=== PATIENT | female | born 1940 | race Caucasian/White ===

== ENCOUNTER 2016-09-24 14:18 | Emergency (ER) | payer MEDICARE ==
[2016-09-24] MEDS ORDERED: PANTOPRAZOLE 40 MG/10 ML VIAL IVP STA (14:42)
[2016-09-24] MEDS ORDERED: SODIUM CHLORIDE 0.9% 1,000 ML IV STA (14:42)
[2016-09-24] MEDS ORDERED: SODIUM CHLORIDE 0.9% 500 ML IV STA (14:42)
[2016-09-24] MEDS ORDERED: METOCLOPRAMIDE 5 MG/ML 2 ML VIAL IVP STA (14:45)
[2016-09-24] MEDS ORDERED: ACETAMINOPHEN IV (For NPO) 1,000 MG in SALINE 1 100ML.BAG IVPB STA (14:45)
--- NOTE | 2016-09-24 14:48 | ED ---
General Adult HPI - General Chief complaint: GI Bleed Stated complaint: Dark stools Time Seen by Provider: 09/24/16 14:33 Source: patient, family, RN notes reviewed Mode of arrival: wheelchair Limitations: no limitations - History of Present Illness Initial comments: Patient is a pleasant 76-year-old female presenting to the emergency department with complaints of headache and dark stools. Headache has been present for about a week. Gradual onset. Headache is right posterior. Headache has been fairly persistent and severe since that time. Patient has been taking Aleve with some improvement of symptoms. Patient has noticed dark stools over the past couple of days. Patient has been somewhat weak over the past couple of days and had some falls without significant injury. No confusion. No isolated area of weakness. No fevers. No abdominal pain. No chest pain or dyspnea. No history of GI bleeding in the past. - Related Data Home Medications Medication Instructions Recorded Confirmed Metoprolol Succinate [Toprol XL] 50 mg PO DAILY 07/23/15 09/24/16 Aspirin EC [Ecotrin Low Dose] 81 mg PO DAILY 09/24/16 09/24/16 Atorvastatin [Lipitor] 20 mg PO HS 09/24/16 09/24/16 Cholecalciferol [Vitamin D3] 1,000 unit PO DAILY 09/24/16 09/24/16 Naproxen Sodium [Aleve] 220 mg PO Q12H PRN 09/24/16 09/24/16 Ramipril [Altace] 5 mg PO BID 09/24/16 09/24/16 metFORMIN HCL [metFORMIN HCL ER] 750 mg PO BID 09/24/16 09/24/16 Previous Rx's Medication Instructions Recorded Metoclopramide HCl [Reglan] 10 mg PO Q6HR PRN #15 tablet 09/24/16 Allergies Allergy/AdvReac Type Severity Reaction Status Date / Time Sulfa (Sulfonamide Allergy Unknown Verified 09/24/16 14:34 Antibiotics) Review of Systems ROS Statement: Those systems with pertinent positive or pertinent negative responses have been documented in the HPI. ROS Other: All systems not noted in ROS Statement are negative. Constitutional: Denies: fever Eyes: Denies: eye pain ENT: Denies: ear pain Respiratory: Denies: cough, dyspnea Cardiovascular: Denies: chest pain Endocrine: Reports: fatigue Gastrointestinal: Reports: melena. Denies: abdominal pain Genitourinary: Denies: dysuria Skin: Denies: rash Neurological: Reports: headache. 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 Absent: nystagmus ENT exam: Present: normal oropharynx Neck exam: Present: normal inspection Respiratory exam: Present: normal lung sounds bilaterally Cardiovascular Exam: Present: regular rate, normal rhythm GI/Abdominal exam: Present: soft. Absent: tenderness Rectal exam: Present: normal inspection. Absent: black stool Extremities exam: Present: normal inspection Neurological exam: Present: alert, oriented X3, CN II-XII intact. Absent: motor sensory deficit Expanded Speech: Present: fluid speech Cranial nerves: EOM's Intact: Normal, Facial Sensation: Normal Sensory exam: Upper Extremity Light Touch: Normal, Lower Extremity Light Touch: Normal Motor strength exam: RUE: 5, LUE: 5, RLE: 5, LLE: 5 Eye Response: (4) open spontaneously Motor Response: (6) obeys commands Verbal Response: (5) oriented Psychiatric exam: Present: normal affect, normal mood Skin exam: Absent: rash Course Vital Signs 09/24/16 09/24/16 14:23 15:34 Temperature 97.1 F L Pulse Rate 99 80 Respiratory 18 18 Rate Blood Pressure 217/101 139/60 O2 Sat by Pulse 98 97 Oximetry Medical Decision Making - Medical Decision Making Patient reexamined and resting comfortably at bedside. Patient is symptom- free. Patient states she is comfortable with discharge home. Patient will be ambulated prior to discharge. Family is present and also comfortable with discharge. Patient and family are updated on results and need for close follow- up. - Lab Data Result diagrams: 09/24/16 15:30 09/24/16 15:30 Lab Results 09/24/16 09/24/16 09/24/16 Range/Units 14:50 14:56 15:30 WBC (3.8-10.6) k/uL RBC (3.80-5.40) m/uL Hgb (11.4-16.0) gm/dL Hct (34.0-46.0) % MCV (80.0-100.0) fL MCH (25.0-35.0) pg MCHC (31.0-37.0) g/dL RDW (11.5-15.5) % Plt Count (150-450) k/uL Neutrophils % % Lymphocytes % % Monocytes % % Eosinophils % % Basophils % % Neutrophils # (1.3-7.7) k/uL Lymphocytes # (1.0-4.8) k/uL Monocytes # (0-1.0) k/uL Eosinophils # (0-0.7) k/uL Basophils # (0-0.2) k/uL PT (9.0-12.0) sec INR (<1.1) APTT (22.0-30.0) sec Sodium (137-145) mmol/L Potassium (3.5-5.1) mmol/L Chloride (98-107) mmol/L Carbon Dioxide (22-30) mmol/L Anion Gap mmol/L BUN (7-17) mg/dL Creatinine (0.52-1.04) mg/dL Est GFR (MDRD) Af Amer (>60 ml/min/1.73 sqM) Est GFR (MDRD) Non-Af (>60 ml/min/1.73 sqM) Glucose (74-99) mg/dL Calcium (8.4-10.2) mg/dL Total Bilirubin (0.2-1.3) mg/dL AST (14-36) U/L ALT (9-52) U/L Alkaline Phosphatase (38-126) U/L Total Creatine Kinase 56 (30-135) U/L CK-MB (CK-2) 0.7 (0.0-2.4) ng/mL CK-MB (CK-2) Rel Index 1.3 Troponin I <0.012 (0.000-0.034) ng/mL Total Protein (6.3-8.2) g/dL Albumin (3.5-5.0) g/dL Urine Color Light Yellow Urine Appearance Cloudy H (Clear) Urine pH 8.0 (5.0-8.0) Ur Specific [place] 1.003 (1.001-1.035) Urine Protein 1+ H (Negative) Urine Glucose (UA) Negative (Negative) Urine Ketones Negative (Negative) Urine Blood Negative (Negative) Urine Nitrate Negative (Negative) Urine Bilirubin Negative (Negative) Urine Urobilinogen <2.0 (<2.0) mg/dL Ur Leukocyte Esterase Moderate H (Negative) Urine WBC 7 H (0-5) /hpf Ur Squamous Epith Cells 5 H (0-4) /hpf Urine Bacteria Moderate H (None) /hpf Urine Mucus Rare H (None) /hpf Stool Occult Blood Negative (Negative) Blood Type Blood Type Recheck Antibody Screen Spec Expiration Date 09/24/16 09/24/16 09/24/16 Range/Units 15:30 15:30 15:30 WBC 4.0 (3.8-10.6) k/uL RBC 3.61 L (3.80-5.40) m/uL Hgb 10.7 L (11.4-16.0) gm/dL Hct 31.7 L (34.0-46.0) % MCV 87.8 (80.0-100.0) fL MCH 29.8 (25.0-35.0) pg MCHC 33.9 (31.0-37.0) g/dL RDW 13.8 (11.5-15.5) % Plt Count 140 L (150-450) k/uL Neutrophils % 77 % Lymphocytes % 14 % Monocytes % 5 % Eosinophils % 2 % Basophils % 1 % Neutrophils # 3.1 (1.3-7.7) k/uL Lymphocytes # 0.6 L (1.0-4.8) k/uL Monocytes # 0.2 (0-1.0) k/uL Eosinophils # 0.1 (0-0.7) k/uL Basophils # 0.0 (0-0.2) k/uL PT 10.6 (9.0-12.0) sec INR 1.0 (<1.1) APTT 21.3 L (22.0-30.0) sec Sodium 144 (137-145) mmol/L Potassium 4.5 (3.5-5.1) mmol/L Chloride 104 (98-107) mmol/L Carbon Dioxide 26 (22-30) mmol/L Anion Gap 14 mmol/L BUN 19 H (7-17) mg/dL Creatinine 0.98 (0.52-1.04) mg/dL Est GFR (MDRD) Af Amer >60 (>60 ml/min/1.73 sqM) Est GFR (MDRD) Non-Af 55 (>60 ml/min/1.73 sqM) Glucose 137 H (74-99) mg/dL Calcium 9.3 (8.4-10.2) mg/dL Total Bilirubin 0.5 (0.2-1.3) mg/dL AST 19 (14-36) U/L ALT 27 (9-52) U/L Alkaline Phosphatase 90 (38-126) U/L Total Creatine Kinase (30-135) U/L CK-MB (CK-2) (0.0-2.4) ng/mL CK-MB (CK-2) Rel Index Troponin I (0.000-0.034) ng/mL Total Protein 6.8 (6.3-8.2) g/dL Albumin 4.1 (3.5-5.0) g/dL Urine Color Urine Appearance (Clear) Urine pH (5.0-8.0) Ur Specific [place] (1.001-1.035) Urine Protein (Negative) Urine Glucose (UA) (Negative) Urine Ketones (Negative) Urine Blood (Negative) Urine Nitrate (Negative) Urine Bilirubin (Negative) Urine Urobilinogen (<2.0) mg/dL Ur Leukocyte Esterase (Negative) Urine WBC (0-5) /hpf Ur Squamous Epith Cells (0-4) /hpf Urine Bacteria (None) /hpf Urine Mucus (None) /hpf Stool Occult Blood (Negative) Blood Type Blood Type Recheck Antibody Screen Spec Expiration Date 09/24/16 Range/Units 15:30 WBC (3.8-10.6) k/uL RBC (3.80-5.40) m/uL Hgb (11.4-16.0) gm/dL Hct (34.0-46.0) % MCV (80.0-100.0) fL MCH (25.0-35.0) pg MCHC (31.0-37.0) g/dL RDW (11.5-15.5) % Plt Count (150-450) k/uL Neutrophils % % Lymphocytes % % Monocytes % % Eosinophils % % Basophils % % Neutrophils # (1.3-7.7) k/uL Lymphocytes # (1.0-4.8) k/uL Monocytes # (0-1.0) k/uL Eosinophils # (0-0.7) k/uL Basophils # (0-0.2) k/uL PT (9.0-12.0) sec INR (<1.1) APTT (22.0-30.0) sec Sodium (137-145) mmol/L Potassium (3.5-5.1) mmol/L Chloride (98-107) mmol/L Carbon Dioxide (22-30) mmol/L Anion Gap mmol/L BUN (7-17) mg/dL Creatinine (0.52-1.04) mg/dL Est GFR (MDRD) Af Amer (>60 ml/min/1.73 sqM) Est GFR (MDRD) Non-Af (>60 ml/min/1.73 sqM) Glucose (74-99) mg/dL Calcium (8.4-10.2) mg/dL Total Bilirubin (0.2-1.3) mg/dL AST (14-36) U/L ALT (9-52) U/L Alkaline Phosphatase (38-126) U/L Total Creatine Kinase (30-135) U/L CK-MB (CK-2) (0.0-2.4) ng/mL CK-MB (CK-2) Rel Index Troponin I (0.000-0.034) ng/mL Total Protein (6.3-8.2) g/dL Albumin (3.5-5.0) g/dL Urine Color Urine Appearance (Clear) Urine pH (5.0-8.0) Ur Specific [place] (1.001-1.035) Urine Protein (Negative) Urine Glucose (UA) (Negative) Urine Ketones (Negative) Urine Blood (Negative) Urine Nitrate (Negative) Urine Bilirubin (Negative) Urine Urobilinogen (<2.0) mg/dL Ur Leukocyte Esterase (Negative) Urine WBC (0-5) /hpf Ur Squamous Epith Cells (0-4) /hpf Urine Bacteria (None) /hpf Urine Mucus (None) /hpf Stool Occult Blood (Negative) Blood Type O Positive Blood Type Recheck No Antibody Screen NEGATIVE Spec Expiration Date 09/27/20162329 - Radiology Data Radiology results: image reviewed (Computed tomography scan of the brain shows no acute abnormality.) Disposition Clinical Impression: Headache, Dark stools Disposition: HOME SELF-CARE Condition: Stable Instructions: Gastrointestinal Bleeding (ED), General Headache (ED) Additional Instructions: Please follow-up with primary care physician this week. Please have your doctor review results and report from today. Please also have your doctor follow-up with urine culture results. Return for severe headache, weakness or confusion, shortness of breath, abdominal pain, bleeding, worsening symptoms or any other concerns. Please use Tylenol rather than ibuprofen/Aleve as needed for headache. Prescriptions: Metoclopramide HCl [Reglan] 10 mg PO Q6HR PRN #15 tablet PRN Reason: Headache Referrals: Omar Marie MD [Primary Care Provider] - 1-2 days
[2016-09-24 15:07] LABS: Appearance,Urine Cloudy (Clear); Bacteria,Urine Moderate /hpf; Bilirubin,Urine Negative (Negative); Glucose,Urine (UA) Negative (Negative); Ketones,Urine Negative (Negative); Leukocyte Esterase,Urine Moderate (Negative); Mucus,Urine Rare /hpf; Nitrite,Urine Negative (Negative); Particle Count 52858; Protein,Urine 1+ (Negative); Specific Gravity,Urine 1.003 (1.001-1.035); Squamous Epithelial Cell,Urine 5 /hpf (0-4); UA Billing (MACRO vs. MICRO) MICRO; Urobilinogen,Urine <2.0 mg/dL (<2.0); WBC,Urine 7 /hpf (0-5)
--- NOTE | 2016-09-24 15:28 | CT ---
EXAMINATION TYPE: CT brain wo con DATE OF EXAM: 09/24/2016 3:23 PM COMPARISON: NONE HISTORY: Headaches for 1-[address] DLP: 1153 mGycm Automated exposure control for dose reduction was used. FINDINGS: There is no acute intracranial hemorrhage, mass effect, or midline shift identified. The ventricles and sulci are consistent with mild degenerative change. Hyperostosis interna noted.. The globes are intact and the visualized sinuses are clear. IMPRESSION: No acute intracranial hemorrhage, mass effect, or midline shift is seen.
[2016-09-24 15:45] LABS: Basophils % (A) 1 %; CH 29.3; CHCM 33.5; Eosinophils # (A) 0.1 k/uL (0-0.7); Eosinophils % (A) 2 %; HCT 31.7 % (34.0-46.0); HDW 2.86; HGB 10.7 gm/dL (11.4-16.0); Luc # (Auto) 0.08; Luc % (Auto) 2; Lymphocytes # (A) 0.6 k/uL (1.0-4.8); Lymphocytes % (A) 14 %; MCH 29.8 pg (25.0-35.0); MCHC 33.9 g/dL (31.0-37.0); MCV 87.8 fL (80.0-100.0); Mean Platelet Volume 7.8; Monocytes # (A) 0.2 k/uL (0-1.0); Monocytes % (A) 5 %; Neutrophils # (A) 3.1 k/uL (1.3-7.7); Neutrophils % (A) 77 %; RBC 3.61 m/uL (3.80-5.40); RDW 13.8 % (11.5-15.5); WBC (Perox) 4.32
[2016-09-24 16:03] LABS: ALT 27 U/L (9-52); AST 19 U/L (14-36); Alkaline Phosphatase 90 U/L (38-126); Anion Gap 14 mmol/L; Blood Urea Nitrogen 19 mg/dL (7-17); Calcium 9.3 mg/dL (8.4-10.2); Carbon Dioxide 26 mmol/L (22-30); Chloride 104 mmol/L (98-107); Glucose 137 mg/dL (74-99); Non-African American GFR(MDRD) 55 (>60 ml/min/1.73 sqM); Potassium 4.5 mmol/L (3.5-5.1); Sodium 144 mmol/L (137-145); Total Bilirubin 0.5 mg/dL (0.2-1.3); Total Protein 6.8 g/dL (6.3-8.2)
[2016-09-24 16:05] LABS: Prothrombin Time 10.6 sec (9.0-12.0)
[2016-09-24 16:25] LABS: Partial Thromboplastin Time 21.3 sec (22.0-30.0)
[2016-09-24 16:28] LABS: Creatine Kinase 56 U/L (30-135)
[2016-09-24 16:42] LABS: Creatine Kinase MB 0.7 ng/mL (0.0-2.4); Troponin I <0.012 ng/mL (0.000-0.034)
[2016-09-24 17:31] VITALS: BP 135/67; PULSE 82; RESP 16; TEMP 98.1
== END 2016-09-24 17:32 | disposition home or self-care (01) ==
LOC: EC 14:18
DX: R51 Headache (principal); R19.5 Other fecal abnormalities; Z79.82 Long term (current) use of aspirin; E78.5 Hyperlipidemia, unspecified; Z79.84 Long term (current) use of oral hypoglycemic drugs; Z88.2 Allergy status to sulfonamides; E11.9 Type 2 diabetes mellitus without complications; I10 Essential (primary) hypertension
CPT/HCPCS: 96365; 96375 ×2; 96361 ×2; 99285; 36415; 86900; 86901; 80053; 82550; 82553; 84484; 85025; 85610; 85730; 86850; 82272; 81001; 87086; 87077; 87186; 70450; J2765; J0131; C9113

== ENCOUNTER 2016-11-17 07:19 | Day surgery (SDC) | payer MEDICARE ==
[2016-11-13 09:48] VITALS: BMI 34.9
[~2016-11-17 07:19] MED LIST: LACTATED RINGERS 1,000 ML IV SCH
[2016-11-17 07:35] VITALS: RESP 18; TEMP 98
[2016-11-17] MEDS ORDERED: LACTATED RINGERS 1,000 ML IV ONE (07:35)
[2016-11-17] MEDS ORDERED: LIDOCAINE 1% 20 ML VIAL (10MG/ML) FOR IV START INTRADERMA ONE (07:47)
[2016-11-17 07:48] LABS: Glucose,Whole Blood 128 mg/dL (75-99)
[2016-11-17] MEDS ORDERED: PROPOFOL 10 MG/ML 20 ML VIAL IV ONE (09:05)
--- NOTE | 2016-11-17 09:34 | P.PCN ---
Date of Procedure: 11/17/16 Procedure(s) Performed: Procedure: Total colonoscopy. Preoperative diagnosis: Screening for neoplasia, patient has history of polyps and his recent issues with dark stools and chronic issues with anemia. Last colonoscopy was in June 2012. Postoperative diagnosis: Diverticulosis of the colon with no evidence of acute diverticulitis, strictures, polyps or cancer. Preparation: HalfLytely prep. Sedation: Was provided by anesthesia. Brief clinical history: The patient is a 76-year-old female who is scheduled for this evaluation for the above reasons. She has had anemia for the last 2 years or so. Apparently her stools have been dark lately. An upper endoscopy in 2008 showed gastritis and esophagitis. Procedure: With the patient on her left lateral decubitus position and after informed consent and adequate sedation, the perianal area was inspected and it did not show any fissures or fistulas. There were no masses felt on digital rectal examination. The Olympus CFQ 160L video colonoscope was then inserted in the rectum in the usual fashion and advanced to the cecum. There were multiple diverticular orifices seen scattered along the length of the bowel including around the hepatic flexure with no evidence of acute diverticulitis or strictures. No polyps or tumors were seen. The mucosa appeared healthy. I retroflexed the endoscope in the rectum before the endoscope was withdrawn. The patient tolerated the procedure well. Plan: The patient was reassured. Discussed dietary measures. Consideration can be given for an upper endoscopy based on her course. She will follow-up with you as planned and I will be happy to see in the future if needed.
[2016-11-17 10:05] VITALS: BP 171/78; PULSE 88
== END 2016-11-17 10:28 | disposition home or self-care (01) ==
LOC: ORWHC2ENDO 07:19
DX: R19.5 Other fecal abnormalities (principal); Z86.010 Personal history of colon polyps; K57.30 Diverticulosis of large intestine without perforation or abscess without bleeding; D64.9 Anemia, unspecified; I10 Essential (primary) hypertension; E78.5 Hyperlipidemia, unspecified; E11.9 Type 2 diabetes mellitus without complications; Z88.2 Allergy status to sulfonamides; Z79.84 Long term (current) use of oral hypoglycemic drugs; Z79.82 Long term (current) use of aspirin; Z79.899 Other long term (current) drug therapy
CPT/HCPCS: 45378; J2704; 99153

== ENCOUNTER 2016-12-23 09:21 | Day surgery (SDC) | payer MEDICARE ==
[2016-12-19 14:22] VITALS: BMI 34.9
[~2016-12-23 09:21] MED LIST changes: -LACTATED RINGERS 1,000 ML IV SCH; +LIDOCAINE 1% 20 ML VIAL (10MG/ML) FOR IV START INTRADERMA PRN
[2016-12-23 09:47] VITALS: TEMP 98.1
[2016-12-23] MEDS: LACTATED RINGERS 1,000 ML IV SCH ×2 (09:51→10:00)
[2016-12-23 09:56] LABS: Glucose,Whole Blood 111 mg/dL (75-99)
[2016-12-23] MEDS ORDERED: PROPOFOL 10 MG/ML 20 ML VIAL IV ONE (10:04)
[2016-12-23] MEDS ORDERED: LIDOCAINE 1% INJ 10MG/ML (20 ML MDV) ONE (10:04)
--- NOTE | 2016-12-23 10:50 | P.PCN ---
Date of Procedure: 12/23/16 Procedure(s) Performed: Procedure: Esophagogastroduodenoscopy and biopsy. Preoperative diagnosis: Intermittent dysphagia and hiccuping with black stools. Postoperative diagnosis: 1. Small sliding hiatal hernia with no obvious esophagitis or complicated reflux disease. 2. Mild gastritis and duodenitis. 3. Multiple biopsies obtained from the duodenum, antrum and esophagus. Preparation and sedation: Was provided by anesthesia. Brief clinical history: The patient is a 76-year-old female who is referred for this evaluation because of issues with hiccuping and coughing and at times choking sensation. She has been having black stools. She was in the emergency room around 2 weeks ago with coffee-ground emesis. This evaluation is to assess for peptic ulcer disease, complicated reflux disease or other pathology. Procedure: With the patient on her left lateral decubitus position and after informed consent and adequate sedation, I passed the Olympus-GIF 160 video upper endoscope through the cricopharyngeus down the esophagus. GE junction was around 40-41 cm from the incisors and there was a small sliding hiatal hernia. The esophagus did not show any erosions, ulcers, strictures or Lozano' s esophagus. The endoscope was then passed into the stomach which was insufflated with air and inspected in detail including the retroflex view in the cardia. There was some mottling and erythema in the antrum but no ulcers or erosions. Pyloric channel did not show any ulcers, duodenal bulb, post bulbar area and descending duodenum showed minimal erythema with no ulcers, erosions or bleeding. I obtained multiple biopsies from the duodenum, antrum and esophagus then the endoscope was withdrawn. The patient tolerated the procedure well. Plan: The patient was reassured and I discussed with her daughters at length. Will await biopsy results. She will follow-up with you as planned and further plans can be made based on her course and biopsy results.
[2016-12-23 10:58] VITALS: RESP 18
[2016-12-23 11:25] VITALS: BP 123/70; PULSE 81
== END 2016-12-23 11:25 | disposition home or self-care (01) ==
LOC: ORWHC2ENDO 09:21
DX: K29.50 Unspecified chronic gastritis without bleeding (principal); K29.80 Duodenitis without bleeding; K44.9 Diaphragmatic hernia without obstruction or gangrene; I10 Essential (primary) hypertension; E78.5 Hyperlipidemia, unspecified; E11.9 Type 2 diabetes mellitus without complications; Z79.84 Long term (current) use of oral hypoglycemic drugs; Z86.718 Personal history of other venous thrombosis and embolism; Z79.82 Long term (current) use of aspirin; Z79.899 Other long term (current) drug therapy; Z88.2 Allergy status to sulfonamides
CPT/HCPCS: 88305; 88342; 43239; J2001; J2704

== ENCOUNTER → 2017-03-30 | Outpatient (CLI) | payer MEDICARE ==
[2017-03-26 15:51] VITALS: BMI 34.5
[2017-03-30 12:10] VITALS: BP 177/64; PULSE 86; RESP 16; TEMP 98.2
--- NOTE | 2017-03-30 12:28 | P.HPIM ---
History of Present Illness H&P Date: 03/30/17 Chief Complaint: neck pain and headaches This is a 77-year-old patient referred by Dr. Stevenson for chronic pain primarily in the shoulders, neck, and the back of the head. Patient has been taking medications from primary care physician including NSAIDs medications with some relief as she does not want to use any narcotics. Patient denies adverse drug effects from medications. Patient also denies new-onset weakness, bowel/ bladder incontinence, or any other signs or symptoms of cauda equina syndrome. There are no signs of acute intoxication, and no indications of medication diversion or overuse. Patient notes that pain worsens significantly with concentration and movement of the head and improves with sleep and medication. Patient has used several types of medications for pain, including NSAIDS, tramadol, and BENZODIAZEPINES. Patient HAS NOT had surgery. Patient HAS NOT had injections previously. Patient HAS NOT had physical therapy recently. In addition to above, 13-point review of systems is also negative for chest pain , shortness of breath, changes in vision, changes in hearing, new onset weakness , abdominal pain, diarrhea, extreme fatigue, malaise, fever, skin changes, homicidal or suicidal ideation, or bowel or bladder incontinence. Vital Signs: Reviewed in EMR Gen: WDWN, AAOx3, NAD HEENT: NCAT, EOMI, hearing grossly normal, TTP over occipital ridges, R > L Pulm: resp unlabored Abd: soft, NT, ND Neck: supple, trachea midline ROM in flexion cervical spine: reduced ROM in extension cervical spine: reduced Cervical paravertebral tenderness: + Cervical Facet tenderness: + bilateral, R > L Spurling's: neg Upper extremity: decreased trap operator strength secondary to pain Neuro: CN II-XII grossly intact, muscle strength lower extremities PRESERVED Past Medical History Past Medical History: Diabetes Mellitus, Deep Vein Thrombosis (DVT), Eye Disorder, Fibromyalgia, Hyperlipidemia, Hypertension Additional Past Medical History / Comment(s): Anemia. Headaches, CONSTANT HUMMING in [place] Ears. Blind LT Eye r/t Macular Degeneration, VERY Limited Vision RT Eye. STOOLS DARK. HIATAL HERNIA. FREQ URINATION, OCC UTI. SPURS IN HEAD, NECK. RT KNEE PAINFUL History of Any Multi-Drug Resistant Organisms: None Reported Past Surgical History: Appendectomy, Bladder Surgery, Joint Replacement Additional Past Surgical History / Comment(s): LT TKA. COLONOSCOPY, EGD. VARICOSE VEIN STRIPPING BILAT Past Anesthesia/Blood Transfusion Reactions: No Reported Reaction Additional Past Anesthesia/Blood Transfusion Reaction / Comment(s): no prior complications with prior blood transfusion Smoking Status: Never smoker - Past Family History Daughter(s) Family Medical History: Cancer Additional Family Medical History / Comment(s): esophagus Father Family Medical History: Cancer Additional Family Medical History / Comment(s): colon Sister(s) Family Medical History: Cancer Additional Family Medical History / Comment(s): 2 SISTERS WITH BREAST CANCER Brother(s) Family Medical History: Cancer Additional Family Medical History / Comment(s): colon Medications and Allergies Home Medications Medication Instructions Recorded Confirmed Type Metoprolol Succinate [Toprol XL] 50 mg PO QAM 07/23/15 03/26/17 History Aspirin EC [Ecotrin Low Dose] 81 mg PO DAILY 09/24/16 03/26/17 History Atorvastatin [Lipitor] 20 mg PO HS 09/24/16 03/26/17 History Naproxen Sodium [Aleve] 220 mg PO Q6H PRN 09/24/16 03/26/17 History Ramipril [Altace] 5 mg PO BID 09/24/16 03/26/17 History metFORMIN HCL [metFORMIN HCL ER] 750 mg PO BID 09/24/16 03/26/17 History Acetaminophen Tab [Tylenol Tab] 1,000 mg PO Q6HR PRN 12/19/16 03/26/17 History Cholecalciferol [Vitamin D3] 1,000 unit PO DAILY 03/26/17 03/26/17 History Cyanocobalamin [Vitamin B-12 1,000 mcg SQ QMONTH 03/26/17 03/26/17 History Injection] Gabapentin [Neurontin] 100 mg PO TID 03/26/17 03/26/17 History Allergies Allergy/AdvReac Type Severity Reaction Status Date / Time pregabalin [From Lyrica] Allergy BLISTERED Verified 03/30/17 11:49 SKIN Sulfa (Sulfonamide Allergy Unknown Verified 03/30/17 11:49 Antibiotics) Results Comments: MRI cervical spine demonstrates a circumferential discogenic bulge of the annulus fibrosis of C6-C7 level posteriorly. There is no cord compression or displacement. At the C5-C6 level is loss of height of the disc space and prominent osteophytic spurs projecting anteriorly and posteriorly. There are hypertrophic changes present at the posterior facets and the osteophytic spur on the right side is producing narrowing of the right exiting neural foramina with asymmetry of the subarachnoid space. Assessment and Plan (1) Occipital neuralgia Status: Chronic (2) Chronic pain syndrome Status: Chronic (3) Cervical spondylosis with myelopathy Status: Acute Plan: 1. Explanation: Opioid and psychological risk scores were reviewed. Diagnoses , prognoses, and multiple treatment options including but not limited to physical therapy, interventional therapies, adjuvant medical therapies, narcotic medication therapies, and surgery were discussed with the patient and all questions were answered to the patient's satisfaction. 2. Opioid agreement: no opioids prescribed today 3. Counseling: The patient was counseled extensively on BODY MASS INDEX, EXERCISE. Specifically, the patient was instructed regarding the importance of weight control and exercise in the context of both chronic pain and overall health. 4. Procedures: cervical MBB bilateral C3-C6, patient wishes to consider further 5. Consultations: none 6. Investigations: none 7. Medications: none prescribed 8. Disposition: f/u as needed if patient wishes to have procedure PQRS measures: 1-Patient's medications are documented in the chart. 2-Tobacco use is negative 3-Patient has not had a pneumococcal vaccine. 4-Advanced care planning discussed, patient unable to give. 5-Opioid contract NOT signed with the patient as no opioids prescribed. 6-Pain positive, follow-up visit or procedure scheduled 7-Patient's blood pressure measured and documented, and patient will follow up with the primary care due to hypertension. 8-Patient's weight was measured, and body mass index ABOVE the normal limits, and counseling was done. Patient instructed to follow up with PCP. 9-Patient WAS NOT identified as an unhealthy alcohol user. Time with Patient: Greater than 30
== END | disposition home or self-care (01) ==
LOC: PNWHC3 11:40
PROVIDERS: ATTEND Anesthesiology
DX: M54.81 Occipital neuralgia (principal); G89.4 Chronic pain syndrome; M47.892 Other spondylosis, cervical region; M50.223 Other cervical disc displacement at C6-C7 level; M46.02 Spinal enthesopathy, cervical region; I10 Essential (primary) hypertension; E11.9 Type 2 diabetes mellitus without complications; Z79.84 Long term (current) use of oral hypoglycemic drugs; M79.7 Fibromyalgia; E78.5 Hyperlipidemia, unspecified; Z79.899 Other long term (current) drug therapy; Z88.8 Allergy status to other drugs, medicaments and biological substances; Z88.2 Allergy status to sulfonamides
CPT/HCPCS: 99211

== ENCOUNTER 2018-06-03 09:02 | Emergency (ER) | payer MEDICARE ==
[2018-06-03 09:11] VITALS: TEMP 98.1
[2018-06-03] MEDS ORDERED: SODIUM CHLORIDE 0.9% 500 ML IV STA (09:35)
[2018-06-03] MEDS ORDERED: ACETAMINOPHEN IV (For NPO) 1,000 MG in EMPTY BAG 1 BAG IVPB ONE (09:36)
--- NOTE | 2018-06-03 09:41 | ED ---
General Adult HPI - General Chief complaint: Neuro Symptoms/Deficit Stated complaint: POSS CVA Source: patient Mode of arrival: wheelchair Limitations: no limitations - History of Present Illness Initial comments: Dictation was produced using [employer] dictation software. please excuse any grammatical, word or spelling errors. Chief Complaint: 78-year-old female presents with acute on chronic headache. She has a past medical history of macular degeneration. History of Present Illness: Patient is a 78-year-old female past medical history of diabetes, DVT, hyperlipidemia, hypertension presents with acute on chronic headache. She states she woke up with this headache. Patient states his headache is similar to the headache she is received in the past ongoing for the last several months she says this headache is similar in severity. However among the series of headache she gets this is one of the more severe ones. Patient denies any neuro deficits. She also woke up having vision changes. 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 She does have some vision to the right eye. She states she sees blotches of dark red in her visual axis. Patient states she woke up like this per she is concerned she is having a stroke. Denies any constitutional symptoms. No asymmetric neurologic deficit to the extremities. The ROS documented in this emergency department record has been reviewed and confirmed by me. Those systems with pertinent positive or negative responses have been documented in the HPI. All other systems are other negative and/or noncontributory. - Related Data Home Medications Medication Instructions Recorded Confirmed Metoprolol Succinate [Toprol XL] 25 mg PO QAM 07/23/15 06/03/18 Atorvastatin [Lipitor] 20 mg PO HS 09/24/16 06/03/18 Naproxen Sodium [Aleve] 220 mg PO Q6H PRN 09/24/16 06/03/18 Ramipril [Altace] 5 mg PO BID 09/24/16 06/03/18 metFORMIN HCL [metFORMIN HCL ER] 750 mg PO BID 09/24/16 06/03/18 Cholecalciferol [Vitamin D3] 1,000 unit PO DAILY 03/26/17 06/03/18 Allergies Allergy/AdvReac Type Severity Reaction Status Date / Time pregabalin [From Lyrica] Allergy BLISTERED Verified 06/03/18 09:32 SKIN Sulfa (Sulfonamide Allergy Unknown Verified 06/03/18 09:32 Antibiotics) Review of Systems ROS Statement: Those systems with pertinent positive or pertinent negative responses have been documented in the HPI. ROS Other: All systems not noted in ROS Statement are negative. Past Medical History Past Medical History: Diabetes Mellitus, Deep Vein Thrombosis (DVT), Eye Disorder, Fibromyalgia, Hyperlipidemia, Hypertension Additional Past Medical History / Comment(s): Anemia. Headaches, CONSTANT HUMMING in [place] Ears. Blind LT Eye r/t Macular Degeneration, VERY Limited Vision RT Eye. STOOLS DARK. HIATAL HERNIA. FREQ URINATION, OCC UTI. SPURS IN HEAD, NECK. RT KNEE PAINFUL History of Any Multi-Drug Resistant Organisms: None Reported Past Surgical History: Appendectomy, Bladder Surgery, Joint Replacement Additional Past Surgical History / Comment(s): LT TKA. COLONOSCOPY, EGD. VARICOSE VEIN STRIPPING BILAT Past Anesthesia/Blood Transfusion Reactions: No Reported Reaction Additional Past Anesthesia/Blood Transfusion Reaction / Comment(s): no prior complications with prior blood transfusion Past Psychological History: No Psychological Hx Reported Smoking Status: Never smoker - Past Family History Daughter(s) Family Medical History: Cancer Additional Family Medical History / Comment(s): esophagus Father Family Medical History: Cancer Additional Family Medical History / Comment(s): colon Sister(s) Family Medical History: Cancer Additional Family Medical History / Comment(s): 2 SISTERS WITH BREAST CANCER Brother(s) Family Medical History: Cancer Additional Family Medical History / Comment(s): colon General Exam - General Exam Comments Initial Comments: PHYSICAL EXAM: General Impression: Alert and oriented x3, not in acute distress HEENT: Normocephalic atraumatic, extra-ocular movements intact, pupils equal and reactive to light bilaterally, mucous membranes moist. Cardiovascular: Heart regular rate and rhythm, S1&S2 audible, no murmurs, rubs or gallops Chest: Lungs clear to auscultation bilaterally, no rhonchi, no wheeze, no rales Abdomen: Bowel sounds present, abdomen soft, non-tender, non-distended, no organomegaly Musculoskeletal: Pulses present and equal in all extremities, no peripheral edema Motor: Power 5/5 bilaterally, no focal deficits noted Neurological: CN II-XII grossly intact, no focal motor or sensory deficits noted Skin: Intact with no visualized rashes Psych: Normal affect and mood Limitations: no limitations Course Vital Signs 06/03/18 06/03/18 06/03/18 09:09 11:04 12:00 Temperature 98.1 F Pulse Rate 83 76 72 Respiratory 20 18 18 Rate Blood Pressure 146/68 130/64 146/71 O2 Sat by Pulse 98 98 99 Oximetry 06/03/18 13:36 Temperature Pulse Rate 77 Respiratory 18 Rate Blood Pressure 145/72 O2 Sat by Pulse 98 Oximetry Medical Decision Making - Medical Decision Making ED course: 78-year-old female presents with headache and vision loss. Patient has a chronic history of headache and vision loss. Today she is having more severe symptoms than usual however she is experiencing symptoms like this in the past. Vital signs upon arrival are within acceptable limits.Laboratory evaluation obtained. CBC is unremarkable. Patient has a hemoglobin of 11.0 which appears to be at or around her baseline. Metabolic panel shows slight elevation and renal markers. Creatinine is 1.4. Most recent creatinine was from September of last year which was less than 1. Urinalysis positive for urinary tract infection. Family wanted to proceed with CT angios the head and neck given that patient has strong family history of brain artery aneurysms. They were concerned about this given that patient has been having severe headaches recently. Discussed with family that CTA contains contrast in May or may not worsen her kidney function. Decision was made with radiologist and patient's family member and patient to proceed with contrast exposure in light of possible kidney injury. There is no clinical suspicion of subarachnoid hemorrhage or intracranial bleed given the chronic nature of her symptoms.Family and daughter was concerned about aneurysm giving strong family history. Sure decision-making was informed and family request that patient receive a CT angioma or other imaging study to evaluate for brain aneurysm. CTA of the head and neck was obtained. There are no acute processes. There is a carotid stenosis of the V4 segment of the right vertebral artery. There is also 15% narrowing within each carotid bulb and 1.8; nodule along the thyroid isthmus. These findings were discussed with patient. They're advised to follow -up with primary care physician. Also told patient to follow-up with neurology for outpatient management of headaches. Patient and family member are understandable and agreeable to plan. EKG interpretation: Ventricular rate 73, normal sinus rhythm, [place] interval 144, QRS 82, QTC 429. No [place] prolongation, no QTC prolongation, no ST or T-wave changes noted. There is nonspecific T-wave inversion in lead 3. Overall, this EKG is unremarkable - Lab Data Result diagrams: 06/03/18 09:26 06/03/18 09:26 Lab Results 06/03/18 06/03/18 06/03/18 Range/Units 09: 09: 09:26 WBC (3.8-10.6) k/uL RBC (3.80-5.40) m/uL Hgb (11.4-16.0) gm/dL Hct (34.0-46.0) % MCV (80.0-100.0) fL MCH (25.0-35.0) pg MCHC (31.0-37.0) g/dL RDW (11.5-15.5) % Plt Count (150-450) k/uL Neutrophils % % Lymphocytes % % Monocytes % % Eosinophils % % Basophils % % Neutrophils # (1.3-7.7) k/uL Lymphocytes # (1.0-4.8) k/uL Monocytes # (0-1.0) k/uL Eosinophils # (0-0.7) k/uL Basophils # (0-0.2) k/uL PT 9.8 (9.0-12.0) sec INR 1.0 (<1.2) Sodium (137-145) mmol/L Potassium (3.5-5.1) mmol/L Chloride (98-107) mmol/L Carbon Dioxide (22-30) mmol/L Anion Gap mmol/L BUN (7-17) mg/dL Creatinine (0.52-1.04) mg/dL Est GFR (CKD-EPI)AfAm (>60 ml/min/1.73 sqM) Est GFR (CKD-EPI)NonAf (>60 ml/min/1.73 sqM) Glucose (74-99) mg/dL Calcium (8.4-10.2) mg/dL Total Bilirubin (0.2-1.3) mg/dL AST (14-36) U/L ALT (9-52) U/L Alkaline Phosphatase (38-126) U/L Troponin I <0.012 (0.000-0.034) ng/mL Total Protein (6.3-8.2) g/dL Albumin (3.5-5.0) g/dL Urine Color Yellow Urine Appearance Turbid H (Clear) Urine pH 8.5 H (5.0-8.0) Ur Specific [place] 1.012 (1.001-1.035) Urine Protein 1+ H (Negative) Urine Glucose (UA) Negative (Negative) Urine Ketones Negative (Negative) Urine Blood Negative (Negative) Urine Nitrite Positive H (Negative) Urine Bilirubin Negative (Negative) Urine Urobilinogen <2.0 (<2.0) mg/dL Ur Leukocyte Esterase Small H (Negative) Urine RBC 8 H (0-5) /hpf Urine WBC 5 (0-5) /hpf Ur Squamous Epith Cells 13 H (0-4) /hpf Triple Phos Crystals Rare H (None) /hpf Amorphous Sediment Rare H (None) /hpf Urine Mucus Rare H (None) /hpf 06/03/18 06/03/18 Range/Units 09:26 09:26 WBC 5.1 (3.8-10.6) k/uL RBC 3.66 L (3.80-5.40) m/uL Hgb 11.0 L (11.4-16.0) gm/dL Hct 33.0 L (34.0-46.0) % MCV 90.2 (80.0-100.0) fL MCH 30.0 (25.0-35.0) pg MCHC 33.2 (31.0-37.0) g/dL RDW 14.2 (11.5-15.5) % Plt Count 140 L (150-450) k/uL Neutrophils % 74 % Lymphocytes % 16 % Monocytes % 6 % Eosinophils % 3 % Basophils % 1 % Neutrophils # 3.8 (1.3-7.7) k/uL Lymphocytes # 0.8 L (1.0-4.8) k/uL Monocytes # 0.3 (0-1.0) k/uL Eosinophils # 0.1 (0-0.7) k/uL Basophils # 0.0 (0-0.2) k/uL PT (9.0-12.0) sec INR (<1.2) Sodium 143 (137-145) mmol/L Potassium 4.6 (3.5-5.1) mmol/L Chloride 110 H (98-107) mmol/L Carbon Dioxide 22 (22-30) mmol/L Anion Gap 11 mmol/L BUN 29 H (7-17) mg/dL Creatinine 1.43 H (0.52-1.04) mg/dL Est GFR (CKD-EPI)AfAm 41 (>60 ml/min/1.73 sqM) Est GFR (CKD-EPI)NonAf 35 (>60 ml/min/1.73 sqM) Glucose 115 H (74-99) mg/dL Calcium 9.3 (8.4-10.2) mg/dL Total Bilirubin 0.5 (0.2-1.3) mg/dL AST 19 (14-36) U/L ALT 23 (9-52) U/L Alkaline Phosphatase 79 (38-126) U/L Troponin I (0.000-0.034) ng/mL Total Protein 7.1 (6.3-8.2) g/dL Albumin 4.2 (3.5-5.0) g/dL Urine Color Urine Appearance (Clear) Urine pH (5.0-8.0) Ur Specific [place] (1.001-1.035) Urine Protein (Negative) Urine Glucose (UA) (Negative) Urine Ketones (Negative) Urine Blood (Negative) Urine Nitrite (Negative) Urine Bilirubin (Negative) Urine Urobilinogen (<2.0) mg/dL Ur Leukocyte Esterase (Negative) Urine RBC (0-5) /hpf Urine WBC (0-5) /hpf Ur Squamous Epith Cells (0-4) /hpf Triple Phos Crystals (None) /hpf Amorphous Sediment (None) /hpf Urine Mucus (None) /hpf Disposition Clinical Impression: Headache Disposition: HOME SELF-CARE Condition: Good Is patient prescribed a controlled substance at d/c from ED?: No Referrals: Omar Marie MD [Primary Care Provider] - 1-2 days Time of Disposition: 14:13
[2018-06-03] MEDS ORDERED: METOCLOPRAMIDE 5 MG/ML 2 ML VIAL IVP STA (09:42)
[2018-06-03 09:48] LABS: Basophils % (A) 1 %; Eosinophils # (A) 0.1 k/uL (0-0.7); Eosinophils % (A) 3 %; Lymphocytes # (A) 0.8 k/uL (1.0-4.8); Lymphocytes % (A) 16 %; MCHC 33.2 g/dL (31.0-37.0); MCV 90.2 fL (80.0-100.0); Mean Platelet Volume 7.2; Monocytes # (A) 0.3 k/uL (0-1.0); Monocytes % (A) 6 %; Neutrophils # (A) 3.8 k/uL (1.3-7.7); Neutrophils % (A) 74 %; Platelet Count 140 k/uL (150-450); RBC 3.66 m/uL (3.80-5.40); RDW 14.2 % (11.5-15.5); WBC 5.1 k/uL (3.8-10.6)
[2018-06-03 09:56] LABS: Prothrombin Time 9.8 sec (9.0-12.0)
[2018-06-03 09:59] LABS: Amorphous Sediment,Urine Rare /hpf; Appearance,Urine Turbid (Clear); Bilirubin,Urine Negative (Negative); Blood,Urine Negative (Negative); Color,Urine Yellow; Glucose,Urine (UA) Negative (Negative); Ketones,Urine Negative (Negative); Leukocyte Esterase,Urine Small (Negative); Mucus,Urine Rare /hpf; Nitrite,Urine Positive (Negative); PH, Urine 8.5 (5.0-8.0); Protein,Urine 1+ (Negative); RBC,Urine 8 /hpf (0-5); Specific Gravity,Urine 1.012 (1.001-1.035); Squamous Epithelial Cell,Urine 13 /hpf (0-4); Triple Phosphate Crystal,Urine Rare /hpf; Urobilinogen,Urine <2.0 mg/dL (<2.0); WBC,Urine 5 /hpf (0-5)
[2018-06-03 10:03] LABS: Albumin 4.2 g/dL (3.5-5.0); Calcium 9.3 mg/dL (8.4-10.2); Potassium 4.6 mmol/L (3.5-5.1); Total Bilirubin 0.5 mg/dL (0.2-1.3); Total Protein 7.1 g/dL (6.3-8.2)
--- NOTE | 2018-06-03 10:09 | CT ---
EXAMINATION TYPE: CT brain wo con DATE OF EXAM: 06/03/2018 COMPARISON: 09/24/2016 HISTORY: 78-year-old female Headache TECHNIQUE: Examination was done in axial plane without intravenous contrast. Coronal and sagittal r econstructions performed. CT DLP: 1189 mGycm Automated exposure control for dose reduction was used. FINDINGS: There is no evidence of acute intracranial hemorrhage, acute ischemic changes, mass, mass-effect, or extra-axial fluid collection. There is no effacement of cerebral sulci or basal subarachnoid cister ns. There is no hydrocephalus. There is no midline shift. Jackson-white matter distinction is preserv ed. Incidental choroid plexus and benign basal ganglionic calcifications. Normal variant hyperostosis fro ntalis interna redemonstrated. Mild generalized cerebral cortical atrophy especially towards the vert ex. Atherosclerotic calcifications within the bilateral carotid siphons and V4 segment vertebral marissa curtis. Paranasal sinuses and mastoid air cells are well pneumatized. Orbits and globes are intact. IMPRESSION: Stable mild atrophy. No acute intracranial abnormality seen.
[2018-06-03 11:05] VITALS: RESP 18
[2018-06-03 13:38] VITALS: BP 145/72; PULSE 77
--- NOTE | 2018-06-03 14:08 | CT ---
EXAMINATION TYPE: CT angio head neck DATE OF EXAM: 06/03/2018 COMPARISON: CT brain same day HISTORY: 78-year-old female pain and headache TECHNIQUE: Contiguous axial scanning of the head and neck performed with IV Contrast, patient injecte d with 65mL mL of Isovue 370. Coronal/sagittal reconstructions performed. 3-D reconstructions generat ed on a dedicated independent workstation. CT DLP: 327.6 mGycm Automated exposure control for dose reduction was used. FINDINGS: Head: Mild narrowing of the V4 segment right vertebral artery after the takeoff of the posterior infe rior cerebellar artery. Basilar artery is patent. Mild to moderate atherosclerotic calcifications within the carotid siphons. No large vessel intracran ial occlusion or otherwise any significant stenosis seen. No aneurysmal change identified. The left transverse sinus is hypoplastic, congenital variation. NECK: Conventional arch vessel branching anatomy. Mild atherosclerotic arch calcifications. The bilateral vertebral artery origins are patent. The left vertebral artery is slightly more dominan t but both vessels remain patent throughout the course. Heterogeneous hypodense 1.8 cm nodule from the inferior aspect of the thyroid isthmus can be further evaluated with thyroid ultrasound. The right common carotid artery is patent. Moderate emphysematous change at the right carotid bifurca tion with mild, less than 25% narrowing of the right carotid bulb diagnostic criteria. The left common carotid artery is patent with mild atherosclerotic calcification at the bifurcation a nd mild, 20% narrowing of the left carotid bulb. No evidence for carotid dissection. IMPRESSION: HEAD: 1. MILD ATHEROSCLEROTIC STENOSIS OF THE V4 SEGMENT RIGHT VERTEBRAL ARTERY AFTER THE PICA TAKEOFF. 2. NO INTRACRANIAL ARTERIAL OCCLUSION OR ANEURYSMAL CHANGE SEEN. NECK: 1. MILD TO MODERATE ATHEROSCLEROTIC CHANGE AT THE CAROTID BIFURCATIONS WITH MILD, LESS THAN 25% NARRO WING WITHIN EACH CAROTID BULB. 2. NO EVIDENCE FOR CAROTID DISSECTION. 3. A 1.8 CM NODULE ALONG THE INFERIOR ASPECT OF THE THYROID ISTHMUS CAN BE FURTHER EVALUATED WITH NON EMERGENT FOLLOW-UP THYROID ULTRASOUND.
== END 2018-06-03 14:31 | disposition home or self-care (01) ==
LOC: EC 09:02
DX: R51 Headache (principal); N39.0 Urinary tract infection, site not specified; R79.89 Other specified abnormal findings of blood chemistry; I65.21 Occlusion and stenosis of right carotid artery; E04.1 Nontoxic single thyroid nodule; H54.62 Unqualified visual loss, left eye, normal vision right eye; E78.5 Hyperlipidemia, unspecified; I10 Essential (primary) hypertension; E11.9 Type 2 diabetes mellitus without complications; Z88.2 Allergy status to sulfonamides; Z88.8 Allergy status to other drugs, medicaments and biological substances; Z79.84 Long term (current) use of oral hypoglycemic drugs; Z79.899 Other long term (current) drug therapy; Z98.890 Other specified postprocedural states; Z82.0 Family history of epilepsy and other diseases of the nervous system
CPT/HCPCS: 99284; 96365; 96375 ×2; 36415; 93005; 80053; 84484; 85025; 85610; 81001; 70496; 70450; 70498; J2765; J0696; J0131; Q9967

== ENCOUNTER 2019-02-08 18:09 | Inpatient (IN) | payer MEDICARE ==
[2019-02-08] MEDS ORDERED: SODIUM CHLORIDE 0.9% 500 ML 500 ML IV STA (18:18)
[2019-02-08 18:35] LABS: Basophils % (A) 0 %; Eosinophils # (A) 0.1 k/uL (0-0.7); Eosinophils % (A) 3 %; HCT 31.8 % (34.0-46.0); HGB 10.5 gm/dL (11.4-16.0); Lymphocytes # (A) 0.7 k/uL (1.0-4.8); Lymphocytes % (A) 16 %; MCH 28.6 pg (25.0-35.0); MCHC 33.1 g/dL (31.0-37.0); MCV 86.3 fL (80.0-100.0); Mean Platelet Volume 8.2; Monocytes # (A) 0.2 k/uL (0-1.0); Monocytes % (A) 4 %; Neutrophils # (A) 3.2 k/uL (1.3-7.7); Neutrophils % (A) 76 %; Platelet Count 126 k/uL (150-450); RBC 3.68 m/uL (3.80-5.40); WBC 4.2 k/uL (3.8-10.6)
[2019-02-08 18:48] LABS: Albumin 4.4 g/dL (3.5-5.0); Calcium 9.5 mg/dL (8.4-10.2); Potassium 4.2 mmol/L (3.5-5.1); Total Bilirubin 0.5 mg/dL (0.2-1.3); Total Protein 7.2 g/dL (6.3-8.2)
[2019-02-08 18:49] LABS: INR 0.9 (<1.2); Partial Thromboplastin Time 23.8 sec (22.0-30.0); Prothrombin Time 9.9 sec (9.0-12.0)
--- NOTE | 2019-02-08 18:58 | XR ---
EXAMINATION TYPE: XR chest 1V portable DATE OF EXAM: 02/08/2019 COMPARISON: NONE HISTORY: Arm numbness and headache TECHNIQUE: Single frontal view of the chest is obtained. FINDINGS: There is no heart failure nor confluent pneumonic infiltrate. Costophrenic angles are magda r. Heart size is normal. IMPRESSION: No active cardiopulmonary disease.
--- NOTE | 2019-02-08 19:14 | CT ---
EXAMINATION TYPE: CT brain lurdes hinojosa DATE OF EXAM: 02/08/2019 COMPARISON: CT brain 06/03/2018 HISTORY: c/o headaches, bilateral arm pain and numbness. no injury. CT DLP: 1261.6 mGycm Automated exposure control for dose reduction was used. TECHNIQUE: CT scan of the head and cervical spine are performed without contrast. FINDINGS: There is mild cerebral atrophy. There is no mass effect nor midline shift. There is no si gn of intracranial hemorrhage. The calvarium is intact. Vertebra have overall fairly normal alignment. There is a 15 mm retrolisthesis at C5-6. There is disc space narrowing at C3-4 C5-6 with spurring. Facet joints are intact. Skull base is intact. There is no evidence of cervical spine fracture. IMPRESSION: Spondylotic changes in the cervical spine. No fracture. Cerebral atrophy. No acute intracranial abnormality. No change.
--- NOTE | 2019-02-08 19:22 | ED ---
General Adult HPI - General Chief complaint: Neuro Symptoms/Deficit Stated complaint: pain in both arms Time Seen by Provider: 02/08/19 18:17 Source: patient, RN notes reviewed, old records reviewed Mode of arrival: ambulatory Limitations: no limitations - History of Present Illness Initial comments: 78-year-old female presents with chief complaint of generalized weakness. Patient has had some weakness of both arms and legs throughout the day today. She states it has been coming and going. She does state that this has been worse on her right arm.. She's had a mild headache. She also complains of numbness in both of her hands predominantly first 3 digits on both hands. Denies chest pain or dyspnea. Denies abdominal pain. Denies vomiting or diarrhea. Denies fever or chills. She has been eating and drinking well. - Related Data Home Medications Medication Instructions Recorded Confirmed Metoprolol Succinate [Toprol XL] 25 mg PO QAM 07/23/15 02/08/19 Atorvastatin [Lipitor] 20 mg PO HS 09/24/16 02/08/19 Cholecalciferol (Vitamin D3) 2,000 unit PO DAILY 02/08/19 02/08/19 [Vitamin D3] Pioglitazone [Actos] 15 mg PO DAILY 02/08/19 02/08/19 metFORMIN HCL [Glucophage] 500 mg PO DAILY 02/08/19 02/08/19 Allergies Allergy/AdvReac Type Severity Reaction Status Date / Time pregabalin [From Lyrica] Allergy BLISTERED Verified 02/08/19 18:35 SKIN Sulfa (Sulfonamide Allergy Unknown Verified 02/08/19 18:35 Antibiotics) Review of Systems ROS Statement: Those systems with pertinent positive or pertinent negative responses have been documented in the HPI. ROS Other: All systems not noted in ROS Statement are negative. Past Medical History Past Medical History: Diabetes Mellitus, Deep Vein Thrombosis (DVT), Eye Disorder, Fibromyalgia, Hyperlipidemia, Hypertension Additional Past Medical History / Comment(s): Anemia. Headaches, CONSTANT HUMMING in [place] Ears. Blind LT Eye r/t Macular Degeneration, VERY Limited Vision RT Eye. STOOLS DARK. HIATAL HERNIA. FREQ URINATION, OCC UTI. SPURS IN HEAD, NECK. RT KNEE PAINFUL History of Any Multi-Drug Resistant Organisms: None Reported Past Surgical History: Appendectomy, Bladder Surgery, Joint Replacement Additional Past Surgical History / Comment(s): LT TKA. COLONOSCOPY, EGD. VARI COSE VEIN STRIPPING BILAT Past Anesthesia/Blood Transfusion Reactions: No Reported Reaction Additional Past Anesthesia/Blood Transfusion Reaction / Comment(s): no prior complications with prior blood transfusion Past Psychological History: No Psychological Hx Reported Smoking Status: Never smoker Past Alcohol Use History: None Reported Past Drug Use History: None Reported - Past Family History Daughter(s) Family Medical History: Cancer Additional Family Medical History / Comment(s): esophagus Father Family Medical History: Cancer Additional Family Medical History / Comment(s): colon Sister(s) Family Medical History: Cancer Additional Family Medical History / Comment(s): 2 SISTERS WITH BREAST CANCER Brother(s) Family Medical History: Cancer Additional Family Medical History / Comment(s): colon General Exam Limitations: no limitations General appearance: alert Eye exam: Present: normal appearance, PERRL ENT exam: Present: normal exam Neck exam: Present: normal inspection. Absent: tenderness, meningismus Respiratory exam: Present: normal lung sounds bilaterally. Absent: respiratory distress, wheezes Cardiovascular Exam: Present: regular rate, normal rhythm GI/Abdominal exam: Present: soft. Absent: distended, tenderness Extremities exam: Present: normal inspection, normal capillary refill. Absent: pedal edema Neurological exam: Present: alert, oriented X3, CN II-XII intact. Absent: motor sensory deficit Psychiatric exam: Present: normal affect, normal mood Skin exam: Present: warm, dry, intact. Absent: cyanosis, diaphoretic Course Vital Signs 02/08/19 02/08/19 18:11 19:35 Temperature 97.9 F Pulse Rate 84 77 Respiratory 20 18 Rate Blood Pressure 191/93 153/79 O2 Sat by Pulse 99 98 Oximetry EKG Findings - EKG Comments: EKG Findings:: EKG: Normal sinus rhythm, rate of 78, [place] interval 146, QRS duration 86, QTC 437. No ST segment elevation. Medical Decision Making - Medical Decision Making 78-year-old female with generalized weakness, numbness in all 4 extremities however complain of numbness and paresthesias is worse in the right upper extremity. Patient is moving all extremities symmetrically NIH is 0 at the time my evaluation. Head CT is performed, negative for intracranial hemorrhage or mass effect. No acute process. CT was also performed of the cervical spine which does show some degenerative change, no acute process. Patient has normal CBC, normal CMP. EKG is normal sinus rhythm. The only localizing feature is the worsening right upper extremity numbness compared to the left. Given the patient's age and risk factors, she will be To for further stroke evaluation. Echo and carotid ultrasound will be obtained. Neurology will be placed on consult. Patient is initiated on aspirin. - Lab Data Result diagrams: 02/08/19 18:27 02/08/19 18:27 Lab Results 02/08/19 02/08/19 02/08/19 Range/Units 18:27 18:27 18:27 WBC 4.2 (3.8-10.6) k/uL RBC 3.68 L (3.80-5.40) m/uL Hgb 10.5 L (11.4-16.0) gm/dL Hct 31.8 L (34.0-46.0) % MCV 86.3 (80.0-100.0) fL MCH 28.6 (25.0-35.0) pg MCHC 33.1 (31.0-37.0) g/dL RDW 15.0 (11.5-15.5) % Plt Count 126 L (150-450) k/uL Neutrophils % 76 % Lymphocytes % 16 % Monocytes % 4 % Eosinophils % 3 % Basophils % 0 % Neutrophils # 3.2 (1.3-7.7) k/uL Lymphocytes # 0.7 L (1.0-4.8) k/uL Monocytes # 0.2 (0-1.0) k/uL Eosinophils # 0.1 (0-0.7) k/uL Basophils # 0.0 (0-0.2) k/uL PT 9.9 (9.0-12.0) sec INR 0.9 (<1.2) APTT 23.8 (22.0-30.0) sec Sodium 138 (137-145) mmol/L Potassium 4.2 (3.5-5.1) mmol/L Chloride 104 (98-107) mmol/L Carbon Dioxide 25 (22-30) mmol/L Anion Gap 9 mmol/L BUN 23 H (7-17) mg/dL Creatinine 1.07 H (0.52-1.04) mg/dL Est GFR (CKD-EPI)AfAm 58 (>60 ml/min/1.73 sqM) Est GFR (CKD-EPI)NonAf 51 (>60 ml/min/1.73 sqM) Glucose 123 H (74-99) mg/dL Calcium 9.5 (8.4-10.2) mg/dL Total Bilirubin 0.5 (0.2-1.3) mg/dL AST 22 (14-36) U/L ALT 16 (9-52) U/L Alkaline Phosphatase 102 (38-126) U/L Troponin I (0.000-0.034) ng/mL Total Protein 7.2 (6.3-8.2) g/dL Albumin 4.4 (3.5-5.0) g/dL Urine Color Urine Appearance (Clear) Urine pH (5.0-8.0) Ur Specific [place] (1.001-1.035) Urine Protein (Negative) Urine Glucose (UA) (Negative) Urine Ketones (Negative) Urine Blood (Negative) Urine Nitrite (Negative) Urine Bilirubin (Negative) Urine Urobilinogen (<2.0) mg/dL Ur Leukocyte Esterase (Negative) Urine RBC (0-5) /hpf Urine WBC (0-5) /hpf Ur Squamous Epith Cells (0-4) /hpf Urine Bacteria (None) /hpf 02/08/19 02/08/19 Range/Units 18:27 19:34 WBC (3.8-10.6) k/uL RBC (3.80-5.40) m/uL Hgb (11.4-16.0) gm/dL Hct (34.0-46.0) % MCV (80.0-100.0) fL MCH (25.0-35.0) pg MCHC (31.0-37.0) g/dL RDW (11.5-15.5) % Plt Count (150-450) k/uL Neutrophils % % Lymphocytes % % Monocytes % % Eosinophils % % Basophils % % Neutrophils # (1.3-7.7) k/uL Lymphocytes # (1.0-4.8) k/uL Monocytes # (0-1.0) k/uL Eosinophils # (0-0.7) k/uL Basophils # (0-0.2) k/uL PT (9.0-12.0) sec INR (<1.2) APTT (22.0-30.0) sec Sodium (137-145) mmol/L Potassium (3.5-5.1) mmol/L Chloride (98-107) mmol/L Carbon Dioxide (22-30) mmol/L Anion Gap mmol/L BUN (7-17) mg/dL Creatinine (0.52-1.04) mg/dL Est GFR (CKD-EPI)AfAm (>60 ml/min/1.73 sqM) Est GFR (CKD-EPI)NonAf (>60 ml/min/1.73 sqM) Glucose (74-99) mg/dL Calcium (8.4-10.2) mg/dL Total Bilirubin (0.2-1.3) mg/dL AST (14-36) U/L ALT (9-52) U/L Alkaline Phosphatase (38-126) U/L Troponin I <0.012 (0.000-0.034) ng/mL Total Protein (6.3-8.2) g/dL Albumin (3.5-5.0) g/dL Urine Color Light Yellow Urine Appearance Clear (Clear) Urine pH 7.0 (5.0-8.0) Ur Specific [place] 1.006 (1.001-1.035) Urine Protein Negative (Negative) Urine Glucose (UA) Negative (Negative) Urine Ketones Negative (Negative) Urine Blood Negative (Negative) Urine Nitrite Negative (Negative) Urine Bilirubin Negative (Negative) Urine Urobilinogen <2.0 (<2.0) mg/dL Ur Leukocyte Esterase Small H (Negative) Urine RBC <1 (0-5) /hpf Urine WBC 4 (0-5) /hpf Ur Squamous Epith Cells <1 (0-4) /hpf Urine Bacteria Occasional H (None) /hpf Disposition Clinical Impression: Transient cerebral ischemia Disposition: ADMITTED IP TO THIS HOSP Condition: Stable Is patient prescribed a controlled substance at d/c from ED?: No Referrals: Omar Marie MD [Primary Care Provider] - 1-2 days Decision to Admit Reason: Admit from EC Decision Date: 02/01/19 Decision Time: 20:40
[2019-02-08 19:50] LABS: Appearance,Urine Clear (Clear); Bacteria,Urine Occasional /hpf; Bilirubin,Urine Negative (Negative); Blood,Urine Negative (Negative); Color,Urine Light Yellow; Glucose,Urine (UA) Negative (Negative); Ketones,Urine Negative (Negative); Leukocyte Esterase,Urine Small (Negative); Nitrite,Urine Negative (Negative); Protein,Urine Negative (Negative); RBC,Urine <1 /hpf (0-5); Specific Gravity,Urine 1.006 (1.001-1.035); Squamous Epithelial Cell,Urine <1 /hpf (0-4); Urobilinogen,Urine <2.0 mg/dL (<2.0); WBC,Urine 4 /hpf (0-5)
[2019-02-08] MEDS ORDERED: ASPIRIN 325 MG TAB PO STA (20:33)
[2019-02-08] MEDS: SODIUM CHLORIDE 0.9% 1,000 ML IV SCH (22:06)
[2019-02-08] MEDS: ATORVASTATIN 80 MG TAB PO SCH (22:08)
[2019-02-09 01:12] LABS: Cholesterol 179 mg/dL (<200); HDL Cholesterol 65 mg/dL (40-60); LDL Cholesterol,Calculated 84 mg/dL (0-99); Triglycerides 152 mg/dL (<150)
[2019-02-09] MEDS ORDERED: ACETAMINOPHEN TAB 325 MG TAB PO STA (03:13)
[2019-02-09 04:50] LABS: Glucose,Whole Blood 109 mg/dL (75-99)
[2019-02-09 05:30] VITALS: BMI 31.1
[2019-02-09] MEDS: SODIUM CHLORIDE 0.9% 1,000 ML IV SCH ×2 (06:21→21:52)
[2019-02-09 09:16] LABS: HCT 27.7 % (34.0-46.0); HGB 9.2 gm/dL (11.4-16.0); MCH 29.2 pg (25.0-35.0); MCHC 33.4 g/dL (31.0-37.0); MCV 87.4 fL (80.0-100.0); Mean Platelet Volume 7.7; Platelet Count 109 k/uL (150-450); RBC 3.17 m/uL (3.80-5.40); RDW 14.7 % (11.5-15.5); WBC 3.9 k/uL (3.8-10.6)
[2019-02-09 09:19] LABS: Albumin 3.5 g/dL (3.5-5.0); Calcium 8.8 mg/dL (8.4-10.2); Magnesium 1.7 mg/dL (1.6-2.3); Potassium 3.9 mmol/L (3.5-5.1); Total Bilirubin 0.5 mg/dL (0.2-1.3)
--- NOTE | 2019-02-09 09:53 | US ---
EXAMINATION TYPE: US carotid duplex BILAT DATE OF EXAM: 02/09/2019 COMPARISON: CT angio head and neck CLINICAL HISTORY: Stenosis. BILATERAL hand numbness, left neck pain and cardiac murmur per patient EXAM MEASUREMENTS: RIGHT: Peak Systolic Velocity (PSV) cm/sec ----- Right CCA: 51. ----- Right ICA: 98.5 ----- Right ECA: 55.0 ICA/CCA ratio: 1.9 RIGHT: End Diastole cm/sec ----- Right CCA: 13.8 ----- Right ICA: 21.5 ----- Right ECA: 0.0 LEFT: Peak Systolic Velocity (PSV) cm/sec ----- Left CCA: 60.1 ----- Left ICA: 95.3 ----- Left ECA: 70.9 ICA/CCA ratio: 1.6 LEFT: End Diastole cm/sec ----- Left CCA: 11.7 ----- Left ICA: 21.6 ----- Left ECA: 0.0 VERTEBRALS (direction of flow): Right Vertebral: Antegrade Left Vertebral: Antegrade Rhythm: Normal Intermittent, irregular wall calcification is noted throughout bilateral carotid systems, but PSV is wnl bilaterally. Grayscale, color Doppler, spectral Doppler imaging performed of the carotid arteries. Waveform analys is does not show significant stenosis of the internal carotid arteries. IMPRESSION: No hemodynamic significant stenosis of the proximal internal carotid arteries bilaterall y by Doppler criteria, an indirect measurement of carotid stenosis
--- NOTE | 2019-02-09 10:51 | ECHOF ---
Referral Reason:Thrombus MEASUREMENTS -------- HEIGHT: 162.6 cm WEIGHT: 85.7 kg BP: 128/52 RVIDd: 2.6 cm (< 3.3) IVSd: 1.6 cm (0.6 - 1.1) LVIDd: 2.6 cm (3.9 - 5.3) LVPWd: 1.4 cm (0.6 - 1.1) IVSs: 1.8 cm LVIDs: 1.8 cm LVPWs: 2.1 cm LAESV Index (A-L): 42.43 ml/m Ao Diam: 2.8 cm (2.0 - 3.7) AV Cusp: 1.3 cm (1.5 - 2.6) LA Diam: 3.9 cm (2.7 - 3.8) MV EXCURSION: 15.965 mm (> 18.000) MV EF SLOPE: 125 mm/s (70 - 150) EPSS: 0.6 cm MV E Jacky: 1.16 m/s MV DecT: 242 ms MV A Jacky: 1.14 m/s MV E/A Ratio: 1.01 AV maxP.37 mmHg AV meanP.88 mmHg AR PHT: 297 ms RAP: 15.00 mmHg RVSP: 54.82 mmHg FINDINGS -------- Sinus rhythm. This was a technically good study. The cavity size is decreased. There is moderate concentric left ventricular hypertrophy. Overall left ventricular systolic function is normal with, an EF between 55 - 60 %. The right ventricle is normal in size. LA is severely dilated >40 ml/m2 The right atrial size is normal. Interatrial and interventricular septum intact. Aortic valve is trileaflet and is moderately thickened. Trace amount of aortic regurgitation. Th ere is moderate aortic stenosis present. Peak/mean gradient across the Aortic Valve is 27.37mmHg / 13.88mmHg. The mitral valve leaflets are mildly thickened. Mild mitral annular calcification present. Modera te mitral regurgitation is present. Moderate to severe tricuspid regurgitation present. There is moderate pulmonary hypertension. The right ventricular systolic pressure, as measured by Doppler, is 54.82mmHg. Trace/mild (physiologic) pulmonic regurgitation. The aortic root size is normal. The inferior vena cava is mildly dilated. There is no pericardial effusion. CONCLUSIONS -------- 1. Sinus rhythm. 2. This was a technically good study. 3. The cavity size is decreased. 4. There is moderate concentric left ventricular hypertrophy. 5. Overall left ventricular systolic function is normal with, an EF between 55 - 60 %. 6. The right ventricle is normal in size. 7. LA is severely dilated >40 ml/m2 8. The right atrial size is normal. 9. Interatrial and interventricular septum intact. 10. Aortic valve is trileaflet and is moderately thickened. 11. Trace amount of aortic regurgitation. 12. There is moderate aortic stenosis present. 13. Peak/mean gradient across the Aortic Valve is 27.37mmHg / 13.88mmHg. 14. The mitral valve leaflets are mildly thickened. 15. Mild mitral annular calcification present. 16. Moderate mitral regurgitation is present. 17. Moderate to severe tricuspid regurgitation present. 18. There is moderate pulmonary hypertension. 19. The right ventricular systolic pressure, as measured by Doppler, is 54.82mmHg. 20. Trace/mild (physiologic) pulmonic regurgitation. 21. The aortic root size is normal. 22. The inferior vena cava is mildly dilated. 23. There is no pericardial effusion. JACQUARD LOOM HEDDLES TIER: Kathrine Kumar RDCS
[2019-02-09 11:48] LABS: Glucose,Whole Blood 174 mg/dL (75-99)
--- NOTE | 2019-02-09 12:13 | P.CNNES ---
History of Present Illness Consult date: 02/09/19 Reason for Consult: TIA/CVA History of Present Illness: Patient is a 78-year-old female, who states, she woke up yesterday morning and noticed her right hand was numb in the ulnar nerve distribution. Slowly it progressed to involve the forearm to the elbow. After lunch, she noticed numbness in the left hand in same distribution. She also felt lightheaded. Patient got concerned. She took 3 baby aspirins and then came to the ER. There was no facial droop, slurred speech. Patient does have blindness in the right eye for macular degeneration. Patient underwent computed tomography scan of the head, which revealed cerebral atrophy, but no acute intracranial abnormality. CT of the cervical spine showed spondylotic changes. No fracture. Chest x-ray was normal. EKG showed normal sinus rhythm. Patient subsequently had a 2-D echo which showed sinus rhythm, moderate concentric LVH. EF 55-60%. Left atrium was severely dilated. Right atrial size is normal. Intra-atrial and interventricular septum are intact. There is moderate aortic stenosis. Moderate severe tricuspid regurgitation. Carotid Doppler showed no hemodynamically significant stenosis of the proximal ICAs bilaterally. Antegrade flow in both vertebral arteries. Patient's blood tests showed a BBC 3.9, hemoglobin 9.2, platelets 109. PT/PTT normal. Electrolytes normal, BUN 18, creatinine 0.98. Liver functions normal. Cholesterol 179, LDL 84, HDL 65. Patient states her last hemoglobin A1c was in the 5 range. Patient states that her numbness in the extremities resolved at night, but now she has some numbness of the left side of the neck and some numbness of the feet. Patient states that she does get numbness of hands off and on, not every day, but ever so often. She relates it to "poor night's sleep". Patient has history of diabetes since late s, but is well controlled. She has hypertension, never smoker. Never had a CVA. Patient states she has been diagnosed with factor V Leiden mutation, was on Coumadin, but was stopped Coumadin for her eyes surgery about 8 years ago, as she has macular degeneration. Patient does not take any antiplatelet medication either. Review of Systems As per HPI. Patient has numbness. No focal weakness, no slurred speech, diplopia. She has macular degeneration and visual field restriction. Denies chest pain, shortness of breath, abdominal pain, nausea vomiting diarrhea. Past Medical History Past Medical History: CVA/TIA, Diabetes Mellitus, Deep Vein Thrombosis (DVT), Eye Disorder, Fibromyalgia, Hyperlipidemia, Hypertension Additional Past Medical History / Comment(s): Anemia. Headaches, CONSTANT HUMMING in [place] Ears. Blind LT Eye r/t Macular Degeneration, VERY Limited Vision RT Eye. STOOLS DARK. HIATAL HERNIA. FREQ URINATION, OCC UTI. SPURS IN HEAD, NECK. RT KNEE PAINFUL, murmur. Leiden factor 5 blood disorder - pt states she used to be on coumadin for this but hasn't been for 6-7 years. History of Any Multi-Drug Resistant Organisms: None Reported Past Surgical History: Appendectomy, Bladder Surgery, Joint Replacement Additional Past Surgical History / Comment(s): LT TKA. COLONOSCOPY, EGD. VARICOSE VEIN STRIPPING BILAT Past Anesthesia/Blood Transfusion Reactions: No Reported Reaction Additional Past Anesthesia/Blood Transfusion Reaction / Comment(s): no prior complications with prior blood transfusion. Past Psychological History: No Psychological Hx Reported Smoking Status: Never smoker Past Alcohol Use History: None Reported Past Drug Use History: None Reported - Past Family History Daughter(s) Family Medical History: Cancer Additional Family Medical History / Comment(s): esophagus Father Family Medical History: Cancer Additional Family Medical History / Comment(s): colon Sister(s) Family Medical History: Cancer Additional Family Medical History / Comment(s): 2 SISTERS WITH BREAST CANCER Brother(s) Family Medical History: Cancer Additional Family Medical History / Comment(s): colon Medications and Allergies Home Medications Medication Instructions Recorded Confirmed Type Metoprolol Succinate [Toprol XL] 25 mg PO QAM 07/23/15 02/08/19 History Atorvastatin [Lipitor] 20 mg PO HS 09/24/16 02/08/19 History Cholecalciferol (Vitamin D3) 2,000 unit PO DAILY 02/08/19 02/08/19 History [Vitamin D3] Pioglitazone [Actos] 15 mg PO DAILY 02/08/19 02/08/19 History metFORMIN HCL [Glucophage] 500 mg PO DAILY 02/08/19 02/08/19 History Allergies Allergy/AdvReac Type Severity Reaction Status Date / Time pregabalin [From Lyrica] Allergy BLISTERED Verified 02/08/19 18:35 SKIN Sulfa (Sulfonamide Allergy Unknown Verified 02/08/19 18:35 Antibiotics) Physical Examination - Vital Signs Vital Signs: Vital Signs Temp Pulse Pulse Resp BP BP Pulse Ox 02/09/19 07:52 98.1 F 105 H 18 161/70 95 02/09/19 06:06 67 16 02/09/19 05:33 67 16 128/52 93 L 02/09/19 04:20 98.1 F 69 18 142/53 97 02/09/19 03:20 98.1 F 77 18 122/52 94 L 02/09/19 02:20 98.0 F 71 18 158/80 97 02/09/19 01:20 98.4 F 75 18 156/64 98 02/08/19 23:34 72 18 174/91 98 02/08/19 22:10 76 18 153/79 99 02/08/19 21:10 98.1 F 73 18 152/64 96 02/08/19 19:35 77 18 153/79 98 02/08/19 18:11 97.9 F 84 20 191/93 99 Intake and Output 02/08/19 02/09/19 02/09/19 22:59 06:59 14:59 Intake Total 100 Output Total 1200 150 Balance -1200 -50 Intake: Intake, IV Titration 100 Amount Sodium Chloride 0.9% 1, 100 000 ml @ 100 mls/hr IV . [facility]H [facility] Rx#:[id number] Output: Urine 1200 150 Other: Voiding Method Indwelling Catheter Indwelling Catheter Weight 85.729 kg On examination patient is an elderly female, in no distress. Patient is very hard of hearing. Her speech and language function are normal. Cognitive functions are normal. On cranial nerve examination, her pupils are round and reacting. Visual lovett reveal some restriction of visual field on the right lateral side, also in the left lower lateral side. Patient shows inconsistent response with visual field testing. No visual field deficits is more peripherally, not in a quadrant pattern. Extraocular muscles are intact. Face is symmetric and tongue protrudes the midline. On muscle strength testing there is no pronator drift and the strength is normal in arms and legs distally and proximally. Reflexes are diminished and plantars are downgoing. Sensory touch is equal. No ataxia for [id number], tone and bulk of muscles normal. Patient walked with a walker, slow steps, stooped posture. Usually she walks much better than how she did today. At home patient does not use any device, unless she goes outside for a long walk, then she uses her walker. Results - Laboratory Findings CBC and BMP: 02/09/19 08:45 02/09/19 08:45 Abnormal Lab Findings: Abnormal Labs 02/08/19 02/08/19 02/08/19 18:27 18:27 18:27 RBC 3.68 L Hgb 10.5 L Hct 31.8 L Plt Count 126 L Lymphocytes # 0.7 L Chloride BUN 23 H Creatinine 1.07 H Glucose 123 H POC Glucose (mg/dL) Total Protein Triglycerides 152 H HDL Cholesterol 65 H Ur Leukocyte Esterase Urine Bacteria 02/08/19 02/09/19 02/09/19 19:34 04:49 08:45 RBC 3.17 L Hgb 9.2 L Hct 27.7 L Plt Count 109 L Lymphocytes # Chloride BUN Creatinine Glucose POC Glucose (mg/dL) 109 H Total Protein Triglycerides HDL Cholesterol Ur Leukocyte Esterase Small H Urine Bacteria Occasional H 02/09/19 08:45 RBC Hgb Hct Plt Count Lymphocytes # Chloride 108 H BUN 18 H Creatinine Glucose POC Glucose (mg/dL) Total Protein 6.0 L Triglycerides HDL Cholesterol Ur Leukocyte Esterase Urine Bacteria Assessment and Plan Assessment: * 78-year-old female admitted with intermittent, asymmetric paresthesias involving her upper and lower extremities. The exact cause uncertain. Rule out TIA versus peripheral process. * Diabetes, well controlled. * Reported history of factor V Leiden mutation, not on anticoagulation or antiplatelet medication at home. * Hypertension Plan: Patient had a normal carotid Doppler. Echocardiogram showed no obvious embolic source. Left atrium is dilated however. Agree with starting aspirin 325 mg daily and Lipitor. Will check B12, folate, TSH, A1c. Patient states that she is not back to baseline regarding her gait. We will check MRI to rule out any stroke.
[2019-02-09] MEDS ORDERED: LORazepam 1 MG TAB PO PRN (15:34)
--- NOTE | 2019-02-09 16:56 | MR ---
EXAMINATION TYPE: MR brain wo con DATE OF EXAM: 02/09/2019 COMPARISON: None HISTORY: Bilateral arm pain and numbness, Possible CVA Standard multiplanar, multisequence MRI departmental protocol Multiplanar, multisequence images of the brain were acquired. Diffusion weighted imaging was performe d. FINDINGS: There is cerebral cortical atrophy. There is no mass effect nor midline shift. There is no evidence of intracranial hemorrhage. There is some thinning of the corpus callosum. Diffusion images show no evidence of cortical infarct. Brainstem is intact. Sella turcica appears normal. There is on the FLAIR images mild patchy increased signal in the periventricular white matter. There are subcortical small foci of increased signal desiree t measure up to 4 mm in both vertebral hemispheres. Total number is approximately 15. This is not a p attern of demyelinating disease. IMPRESSION: Cerebral atrophy. White Matter changes more likely related to chronic small vessel ischemia.
[2019-02-09 17:08] LABS: Glucose,Whole Blood 122 mg/dL (75-99)
[2019-02-09 19:32] LABS: Folate, Serum 12.2 ng/mL
[2019-02-09 20:38] LABS: Glucose,Whole Blood 139 mg/dL (75-99)
[2019-02-09 21:14] LABS: Hemoglobin A1C 6.1 % (4.0-6.0)
[2019-02-09] MEDS: ATORVASTATIN 80 MG TAB PO SCH (22:03)
[2019-02-09] MEDS: ASPIRIN 325 MG TAB PO SCH (22:03)
[2019-02-09] MEDS: ENOXAPARIN 40 MG/0.4 ML SYRINGE SQ SCH (22:03)
--- NOTE | 2019-02-09 23:17 | HP ---
HISTORY AND PHYSICAL DATE OF ADMISSION: 02/08/2019 DATE OF SERVICE: 02/09/2019 PRESENTING COMPLAINT: Weakness, numbness in the arms. HISTORY OF PRESENTING COMPLAINT: This is a 78-year-old patient who follows with Dr. Omar Marie. Patient's chronic stable medical conditions include diabetes, fibromyalgia, hypertension, hyperlipidemia, anemia, chronic tinnitus, blind in the left eye, macular degeneration, limited vision in the right eye, hiatal hernia, factor V Leiden blood disorder; used to be on Coumadin in the past. The patient presented with an episode of numbness in the right arm affecting the lateral 3 fingers; that is, the middle finger down to the pinky and that half of the arm. She also noticed it on the other side. There was no obvious chest pain or palpitation. No obvious neck pain. She also noticed having numbness in the . These are the symptoms she presented here with. She denied any headache. No change in her vision. Neurological consult was done. There is no fever, no chills. REVIEW OF SYSTEMS: CONSTITUTIONAL: None. HEENT: As above. RESPIRATORY: None. CARDIOVASCULAR: None. GASTROINTESTINAL: None. GENITOURINARY: None. MUSCULOSKELETAL: Arthritic pain in the joints. DERMATOLOGICAL: None. HEMATOLOGICAL: None. LYMPHATICS: None. PSYCHIATRY: None. NEUROLOGICAL: As above. PAST MEDICAL HISTORY: 1. Stroke/TIA. 2. Diabetes mellitus, type 2. 3. DVT. 4. Fibromyalgia. 5. Hyperlipidemia. 6. Hypertension. 7. Anemia. 8. Chronic tinnitus. 9. Blind in the left eye. 10.Limited vision in the right eye. 11.Hiatal hernia. 12.Right knee pain. 13.Factor V Leiden disorder, for which she has taken Coumadin in the past. PAST SURGICAL HISTORY: 1. Appendectomy. 2. Bladder surgery. 3. Left total knee arthroplasty. 4. Varicose vein stripping, bilateral. SOCIAL HISTORY: No smoking. No alcohol. Lives with a sister. FAMILY HISTORY: Esophageal cancer. HOME MEDICATIONS: 1. Glucophage 500 mg daily. 2. Actos 15 mg p.o. daily. 3. Toprol-XL 25 mg p.o. daily. 4. Vitamin D3 2000 units p.o. daily. 5. Lipitor 20 mg at bedtime. ALLERGIES: LYRICA and SULFA. PHYSICAL EXAMINATION: VITAL SIGNS ON PRESENTATION: Temperature 97.9, pulse 84, respiration 20, blood pressure 153/79, pulse ox 98% on room air. GENERAL APPEARANCE: Well built; BMI 31.9. Sitting up in a chair. Awake. EYES: Pupils equal. Conjunctivae normal. HEENT: External appearance of nose and ears normal. Oral cavity normal. NECK: JVD not raised. Mass not palpable. RESPIRATORY: Effort normal. LUNGS: Fair air entry. CARDIOVASCULAR: First and second sounds normal. No edema. ABDOMEN: Soft, non-tender. Liver and spleen not palpable. LYMPHATIC: No lymph node palpable in neck or axillae. PSYCHIATRY: Patient is able to answer questions. NEUROLOGICAL: Pupils equal. No facial asymmetry. Some decreased sensation in the lower extremities distally. Power grossly intact. INVESTIGATIONS: White count 4.2, hemoglobin 10.5. Potassium 4.2, BUN 23, creatinine 1.07. TSH normal. Chest x-ray film, personally reviewed by me, shows no lung infiltrate. CT scan of the head and cervical spine shows 15 mm retrolisthesis at C5-6, some disc space narrowing at C3-4, C5-6, cerebral atrophy. EKG tracing, personally reviewed by me, shows normal sinus rhythm. Carotid Doppler shows no significant stenosis. ASSESSMENT: 1. This is a patient who presented with numbness in both the arms, especially in the distal aspect, more on the ulnar side. This could well be from the intervertebral narrowing at the C2 to C6 level and referred neuropathy from the same. The numbness in lower extremities could be unrelated. Will need further workup by Neurology. 2. Diabetes mellitus, type 2, on oral hypoglycemic. 3. Chronic fibromyalgia. 4. Hyperlipidemia. 5. Essential hypertension. 6. Chronic bilateral tinnitus. 7. 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 8. Chronic hiatal hernia. 9. Factor V Leiden mutation. PLAN: Home medications are resumed. Neurology was consulted, who ordered an MRI. Patient was put on aspirin. Will also add Lovenox. Care was discussed with family at the bedside. MMODL / IJN: [id number] /
[2019-02-10] MEDS: INSULIN ASPART (NovoLOG) 100 UNIT/ML VIAL SQ SCH ×4 (07:11→21:03)
[2019-02-10 08:02] LABS: Glucose,Whole Blood 99 mg/dL (75-99)
[2019-02-10 08:24] LABS: Basophils % (A) 1 %; Eosinophils # (A) 0.1 k/uL (0-0.7); Eosinophils % (A) 4 %; HCT 28.8 % (34.0-46.0); HGB 8.9 gm/dL (11.4-16.0); Lymphocytes # (A) 0.5 k/uL (1.0-4.8); Lymphocytes % (A) 18 %; MCH 27.5 pg (25.0-35.0); MCHC 30.8 g/dL (31.0-37.0); MCV 89.3 fL (80.0-100.0); Mean Platelet Volume 8.7; Monocytes # (A) 0.2 k/uL (0-1.0); Monocytes % (A) 6 %; Neutrophils # (A) 1.9 k/uL (1.3-7.7); Neutrophils % (A) 70 %; Platelet Count 117 k/uL (150-450); RBC 3.23 m/uL (3.80-5.40); RDW 14.8 % (11.5-15.5); WBC 2.7 k/uL (3.8-10.6)
[2019-02-10 08:34] LABS: Calcium 8.5 mg/dL (8.4-10.2); Magnesium 1.7 mg/dL (1.6-2.3); Potassium 3.9 mmol/L (3.5-5.1)
[2019-02-10] MEDS: PIOGLITAZONE 15 MG TAB PO SCH (10:34)
[2019-02-10] MEDS: ENOXAPARIN 40 MG/0.4 ML SYRINGE SQ SCH (10:34)
[2019-02-10] MEDS: metFORMIN 500 MG TAB PO SCH (10:34)
[2019-02-10] MEDS: ASPIRIN 325 MG TAB PO SCH (10:34)
[2019-02-10] MEDS: CHOLECALCIFEROL 1,000 UNIT TAB PO SCH (10:34)
[2019-02-10] MEDS: METOPROLOL SUCCINATE (ER) 25 MG TAB.ER.24H PO SCH (10:34)
[2019-02-10 11:50] LABS: Glucose,Whole Blood 106 mg/dL (75-99)
[2019-02-10] MEDS: ACETAMINOPHEN TAB 325 MG TAB PO PRN ×2 (11:56→19:13)
--- NOTE | 2019-02-10 17:16 | P.PN ---
Subjective Progress Note Date: 02/10/19 Patient denies any changes in her condition. No significant numbness tingling, focal weakness. Objective - Vital Signs Vital signs: Vital Signs Temp 98.1 F 02/10/19 16:00 Pulse 71 02/10/19 16:00 Resp 20 02/10/19 16:00 BP 146/60 02/10/19 16:00 Pulse Ox 96 02/10/19 16:00 Intake & Output 02/09/19 02/10/19 02/10/19 18:59 06:59 18:59 Intake Total 400 300 900 Output Total 680 010 1745 Balance -30 -125 -205 Weight 85.5 kg Intake: IV 200 900 Sodium Chloride 0.9% 1, 200 900 000 ml @ 100 mls/hr IV . Q10H [facility] Rx#:[id number] Intake, IV Titration 400 Amount Sodium Chloride 0.9% 1, 400 000 ml @ 100 mls/hr IV . Q10H [facility] Rx#:[id number] Oral 100 Output: Urine 630 029 8813 Other: Voiding Method Indwelling Catheter Indwelling Catheter Indwelling Catheter # Bowel Movements 1 - Exam Patient alert and awake, sitting in the chair. Family members present. Detail examination deferred. - Labs CBC & Chem 7: 02/10/19 08:03 02/10/19 08:03 Labs: Abnormal Lab Results - Last 24 Hours (Table) 02/09/19 02/09/19 02/10/19 Range/Units 08:45 20:36 08:03 WBC 2.7 L (3.8-10.6) k/uL RBC 3.23 L (3.80-5.40) m/uL Hgb 8.9 L (11.4-16.0) gm/dL Hct 28.8 L (34.0-46.0) % MCHC 30.8 L (31.0-37.0) g/dL Plt Count 117 L (150-450) k/uL Lymphocytes # 0.5 L (1.0-4.8) k/uL Chloride (98-107) mmol/L Glucose (74-99) mg/dL POC Glucose (mg/dL) 139 H (75-99) mg/dL Hemoglobin A1c 6.1 H (4.0-6.0) % 05/23/19 05/23/19 Range/Units 08:03 11:47 WBC (3.8-10.6) k/uL RBC (3.80-5.40) m/uL Hgb (11.4-16.0) gm/dL Hct (34.0-46.0) % MCHC (31.0-37.0) g/dL Plt Count (150-450) k/uL Lymphocytes # (1.0-4.8) k/uL Chloride 108 H (98-107) mmol/L Glucose 114 H (74-99) mg/dL POC Glucose (mg/dL) 106 H (75-99) mg/dL Hemoglobin A1c (4.0-6.0) % Assessment and Plan Assessment: * 78-year-old female admitted with intermittent, asymmetric paresthesias inv olving her upper and lower extremities. Probable due to B12 deficiency. * B12 deficiency * Diabetes, well controlled. * Reported history of factor V Leiden mutation, not on anticoagulation or antiplatelet medication at home. * Hypertension Plan: Patient had a normal carotid Doppler. Echocardiogram showed no obvious embolic source. Left atrium is dilated however. Continue aspirin 325 mg daily and Lipitor. B12 201, folate 12.2, TSH 3.81, hemoglobin A1c 6.1. Patient will be given vitamin B12 injection 1000 g IM 1 dose now. Patient states that she does get vitamin B12 injections monthly, but probably will need more than once a month B12 injections. At least twice a month. She should have B12 level checked periodically through her primary physician. MRI of the brain showed no acute stroke. Some small vessel disease. Patient clear for discharge from neurology standpoint.
[2019-02-10 17:24] LABS: Glucose,Whole Blood 110 mg/dL (75-99)
[2019-02-10] MEDS ORDERED: CYANOCOBALAMIN 1,000 MCG/ML 1 ML VIAL IM ONE (17:30)
[2019-02-10 20:35] LABS: Glucose,Whole Blood 114 mg/dL (75-99)
[2019-02-10] MEDS: ATORVASTATIN 80 MG TAB PO SCH (21:06)
[2019-02-11] MEDS: METOPROLOL SUCCINATE (ER) 25 MG TAB.ER.24H PO SCH (05:29)
--- NOTE | 2019-02-11 05:29 | PN ---
PROGRESS NOTE DATE OF SERVICE: 02/10/2019 PRESENTING COMPLAINT: Numbness in both the arms. INTERVAL HISTORY: The patient presented with numbness in both the ulnar surface of both the forearms. Symptoms are much better. Did undergo an MRI, the findings were nonspecific. Otherwise, patient is doing well. Daughter is at the bedside. No new symptoms. REVIEW OF SYSTEMS: Done for constitutional, cardiovascular, GI, pulmonary, neuro; relevant findings as above. CURRENT MEDICATIONS: Current medications are reviewed. PHYSICAL EXAMINATION: On examination, temperature 98.2, pulse 72, respiration 14, blood pressure 150/73 pulse ox 97% on room air. GENERAL APPEARANCE: Sitting up, comfortable. EYES: Pupils equal. Conjunctivae normal. NECK: JVD not raised. Mass not palpable. RESPIRATORY: Effort normal. LUNGS: Clear. CARDIOVASCULAR: First and second sounds normal. No edema. ABDOMEN: Soft, nontender. Liver and spleen not palpable. PSYCHIATRY: Awake, answering questions. NEUROLOGICAL: No new finding. INVESTIGATIONS: White count 2.7, hemoglobin 8.9, platelets 117, potassium 3.9. ASSESSMENT: 1. Bilateral arm pain in the ulnar distribution, likely radiculopathy from intervertebral narrowing in the cervical spine. 2. Diabetes mellitus type 2 on oral hypoglycemic. 3. Chronic fibromyalgia. 4. Hyperlipidemia. 5. Essential hypertension. 6. Chronic bilateral tinnitus. 7. 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 8. Chronic hiatal hernia. 9. Factor V Leiden mutation. 10.Pancytopenia, cause undetermined. PLAN: Care was discussed at length with the daughter at the bedside. Per neurology, Dr. Mejía, no further intervention to be done. Hopefully patient can be discharged tomorrow. Will DC patient's Tarango catheter. MMODL / IJN: [id number] /
[2019-02-11 07:25] LABS: Glucose,Whole Blood 102 mg/dL (75-99)
[2019-02-11] MEDS: INSULIN ASPART (NovoLOG) 100 UNIT/ML VIAL SQ SCH ×2 (07:25→13:39)
[2019-02-11] MEDS: ASPIRIN 325 MG TAB PO SCH (10:13)
[2019-02-11] MEDS: CHOLECALCIFEROL 1,000 UNIT TAB PO SCH (10:13)
[2019-02-11] MEDS: ENOXAPARIN 40 MG/0.4 ML SYRINGE SQ SCH (10:14)
[2019-02-11] MEDS: metFORMIN 500 MG TAB PO SCH (10:14)
[2019-02-11] MEDS: PIOGLITAZONE 15 MG TAB PO SCH (10:14)
--- NOTE | 2019-02-11 10:22 | P.PN ---
Subjective Progress Note Date: 02/11/19 Patient's other daughter was present today. Patient denies any changes in her condition. Patient denies any numbness or tingling in her extremities. No focal weakness. No focal symptoms. Objective - Vital Signs Vital signs: Vital Signs Temp 98.9 F 02/11/19 08:00 Pulse 79 02/11/19 08:00 Resp 17 02/11/19 08:00 BP 154/69 02/11/19 08:00 Pulse Ox 97 02/11/19 08:00 Intake & Output 02/10/19 02/11/19 02/11/19 18:59 06:59 18:59 Intake Total 1000 240 Output Total 1205 2675 Balance -205 -2435 Weight 82.7 kg Intake: IV 1000 Sodium Chloride 0.9% 1, 1000 000 ml @ 100 mls/hr IV . Q10H REBA Rx#:[id number] Oral 240 Output: Urine 1205 2675 Other: Voiding Method Indwelling Catheter Bedside Commode # Voids 2 # Bowel Movements 1 1 - Exam Patient alert and awake, sitting in the chair. Family members present. Detail examination deferred. - Labs CBC & Chem 7: 02/10/19 08:03 02/10/19 08:03 Labs: Abnormal Lab Results - Last 24 Hours (Table) 02/10/19 02/10/19 02/10/19 Range/Units 11:47 17:22 20:33 POC Glucose (mg/dL) 106 H 110 H 114 H (75-99) mg/dL 02/11/19 Range/Units 07:23 POC Glucose (mg/dL) 102 H (75-99) mg/dL Assessment and Plan Assessment: * 78-year-old female admitted with intermittent, asymmetric paresthesias involving her upper and lower extremities. Probable due to B12 deficiency. * B12 deficiency * Diabetes, well controlled. * Reported history of factor V Leiden mutation, not on anticoagulation or antiplatelet medication at home. * Hypertension Plan: Patient had a normal carotid Doppler. Echocardiogram showed no obvious embolic source. Left atrium is dilated however. Continue aspirin 325 mg daily and Lipitor. B12 201, folate 12.2, TSH 3.81, hemoglobin A1c 6.1. Patient will be given vitamin B12 injection 1000 g IM 1 dose now. Patient will be receiving B12 injections weekly for 6 weeks and then every other week. She should have B12 level checked periodically through her primary physician. MRI of the brain showed no acute stroke. Some small vessel disease. Patient clear for discharge from neurology standpoint.
[2019-02-11 11:57] LABS: Glucose,Whole Blood 115 mg/dL (75-99)
[2019-02-11 12:22] VITALS: BP 138/91; PULSE 78; RESP 18; TEMP 98.7
--- NOTE | 2019-02-12 04:22 | DS ---
DISCHARGE SUMMARY DATE OF ADMISSION: 02/08/2019 DATE OF DISCHARGE: February 11, 2019. FINAL DIAGNOSES: 1. Bilateral arm pain in the ulnar distribution, likely radiculopathy from intervertebral narrowing in the cervical spine, POA. 2. Diabetes mellitus type 2 on oral hypoglycemic. 3. Chronic fibromyalgia. 4. Hyperlipidemia. 5. Essential hypertension. 6. Chronic bilateral tinnitus. 7. 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 8. Chronic hiatal hernia. 9. Factor 5 Leiden mutation. 10.Pancytopenia cause undetermined. 11.Moderate aortic stenosis, moderate mitral regurgitation. 12.Moderate to severe tricuspid regurgitation, nonrheumatic. 13.Secondary pulmonary hypertension. 14.Obesity, BMI 31.3. HOSPITAL COURSE: This patient presented with numbness in the both the arms on the ulnar aspect 2 1/2 fingers. 2D echo results were as above including preserved LV function. Carotid Doppler did not show any critical stenosis. MRI of the brain showed chronic findings. Head, neck, cervical spine did show evidence of osteoarthritis, intervertebral narrowing and retrolisthesis of the spine, felt to be causing some element of radiculopathy. The patient's symptoms have since resolved. Care was discussed with daughter at the bedside. PHYSICAL EXAMINATION: Temperature 98.7 pulse 72, respiratory 18, blood pressure 138/91. Pulse ox 98% on room air. Lungs fair entry. Cardiovascular: First and second sounds normal. INVESTIGATIONS: White count 2.7, hemoglobin 8.9, platelets 117, potassium 3.9. BUN and creatinine is normal. CONSULTATIONS: Dr. Beckford from Neurology. DISCHARGE MEDICATIONS: 1. Toprol-XL 25 mg a day. 2. Vitamin D3 2000 units p.o. daily. 3. Actos 50 mg p.o. daily. 4. Metformin 500 mg p.o. daily. 5. Naproxen 220 mg b.i.d. p.r.n. 6. Aspirin 81 mg daily. 7. Lipitor 40 mg q.2 q.h.s. FOLLOW UP: Follow up with Dr. Marie in [address] Omar Marie. MMODL / LLUVIAN: [id number] /
== END 2019-02-11 14:34 | disposition home health service (06) | DRG 552 ==
LOC: EC 18:09 → 3SCARD 20:33 → 2SICU 02-09 04:45
PROVIDERS: ADMIT Hospitalist; ATTEND Hospitalist
DX: M48.02 Spinal stenosis, cervical region (principal); D61.818 Other pancytopenia; D68.51 Activated protein C resistance; M54.12 Radiculopathy, cervical region; I27.29 Other secondary pulmonary hypertension; I08.3 Combined rheumatic disorders of mitral, aortic and tricuspid valves; E11.9 Type 2 diabetes mellitus without complications; M47.22 Other spondylosis with radiculopathy, cervical region; E53.8 Deficiency of other specified B group vitamins; E66.9 Obesity, unspecified; E78.5 Hyperlipidemia, unspecified; H35.30 Unspecified macular degeneration; H54.3 Unqualified visual loss, both eyes; H93.13 Tinnitus, bilateral; I10 Essential (primary) hypertension; K44.9 Diaphragmatic hernia without obstruction or gangrene; M79.7 Fibromyalgia; H91.90 Unspecified hearing loss, unspecified ear; Z68.31 Body mass index [BMI] 31.0-31.9, adult; Z79.84 Long term (current) use of oral hypoglycemic drugs; Z79.899 Other long term (current) drug therapy; Z88.2 Allergy status to sulfonamides; Z88.8 Allergy status to other drugs, medicaments and biological substances; Z86.73 Personal history of transient ischemic attack (TIA), and cerebral infarction without residual deficits; Z96.652 Presence of left artificial knee joint; Z86.718 Personal history of other venous thrombosis and embolism; Z87.440 Personal history of urinary (tract) infections; Z90.49 Acquired absence of other specified parts of digestive tract; Z80.0 Family history of malignant neoplasm of digestive organs; Z80.3 Family history of malignant neoplasm of breast
CPT/HCPCS: 36415; 51702; 70450; 70551; 71045; 72125; 80048; 80053; 80061; 81001; 82607; 82746; 83036; 83735; 84443; 84484; 85025; 85027; 85610; 85730; 93005; 93306; 93880; 96360; 96361; 99285

== ENCOUNTER 2021-04-21 12:04 | Emergency (ER) | payer MEDICARE ==
[2021-04-21 12:09] VITALS: RESP 18; TEMP 98
[2021-04-21] MEDS ORDERED: METOCLOPRAMIDE 5 MG/ML 2 ML VIAL IVP STA (12:23)
[2021-04-21] MEDS ORDERED: MECLIZINE 12.5 MG TAB PO STA (12:23)
[2021-04-21] MEDS ORDERED: SODIUM CHLORIDE 0.9% 1,000 ML IV STA (12:25)
--- NOTE | 2021-04-21 12:27 | ED ---
General Adult HPI - General Chief complaint: Dizziness Stated complaint: leg pain/dizzy Time Seen by Provider: 04/21/21 12:07 Source: patient Mode of arrival: wheelchair Limitations: no limitations - History of Present Illness Initial comments: Dictation was produced using Smart[employer] dictation software. please excuse any grammatical, word or spelling errors. Chief Complaint: 81-year-old female presents to the emergency department for ve rtigo and neuropathic pain History of Present Illness:-year-old female history of neuropathy. She's been complaining of pain and paresthesias to the bilateral lower extremities ongoing for 30 days. States that she is here in emergency department for some pain control. Daughter is at bedside reports that she's been on a course of Lyrica and gabapentin however it was discontinued due to worsening vision. Patient has not tried to take pain medicines at home she was prescribed Vicodin however does not take this due to being word that her vision might get worse. Patient is legally blind. Denies any headache. She also has been having symptoms of vertigo. States it's worse when she puts her head back towards fatigable. It's only triggered with movements. She states that she's not vertiginous at rest her leg. She reports that the paresthesias are to her anterior thomas areas. She states that it's worse on her left leg and extends up to her hip. On her right lower extremity and extends up from her anterior tibia area to the knee. Daughter at bedside is concerned the patient has electrolyte derangement or his perhaps mildly dehydrated. She took some laxatives yesterday to treat some constipation. The ROS documented in this emergency department record has been reviewed and c onfirmed by me. Those systems with pertinent positive or negative responses have been documented in the HPI. All other systems are other negative and/or noncontributory. PHYSICAL EXAM: General Impression: Alert and oriented x3, not in acute distress HEENT: Normocephalic atraumatic, extra-ocular movements intact, pupils equal and reactive to light bilaterally, mucous membranes moist. Cardiovascular: Heart regular rate and rhythm Chest: Able to complete full sentences, no retractions, no tachypnea Abdomen: abdomen soft, non-tender, non-distended, no organomegaly Musculoskeletal: Pulses present and equal in all extremities, no peripheral edema Motor: no focal deficits noted Neurological: CN II-XII grossly intact, no focal motor or sensory deficits noted, no nystagmus, patient has intact sensation to light touch and pain to her bilateral lower extremities Skin: Intact with no visualized rashes Psych: Normal affect and mood ED course: 81-year-old female presents to the emergency department for vertigo and acute on chronic exacerbation of bilateral lower extremity neuropathy. Vital signs upon arrival are within acceptable limits. Laboratory evaluation obtained. Leukopenia 3.0. Patient has history of leukopenia. Rest of CBC within acceptable limits. Metabolic panel shows garcia vated renal markers. This likely secondary to dehydration. Rest metabolic panel is within acceptable limits. Orthostatic vital signs are slightly positive. Patient given intravenous fluids. Evaluate at bedside at 1:40 PM found to be in stable medical condition. Patient feels improved with the IV fluids and IV analgesia. Disposition options were discussed with patient. She requests to be discharge. Daughter at bedside reports that patient has an appointment with her primary care physician the near future. Return precautions discussed. Patient discharged. EKG interpretation: Ventricular rate 80, normal sinus rhythm, MO interval 138, QRS 86, QTC 438. No MO prolongation, no QTC prolongation, no ST or T-wave changes noted. EKG compared to 02/08/2019 showing no changes. Overall, this EKG is unremarkable - Related Data Home Medications Medication Instructions Recorded Confirmed Metoprolol Succinate [Toprol XL] 25 mg PO QAM 07/23/15 02/08/19 Cholecalciferol (Vitamin D3) 2,000 unit PO DAILY 02/08/19 02/08/19 [Vitamin D3] Pioglitazone [Actos] 15 mg PO DAILY 02/08/19 02/08/19 metFORMIN HCL [Glucophage] 500 mg PO DAILY 02/08/19 02/08/19 Naproxen Sodium [Aleve] 220 mg PO BID PRN 02/09/19 02/09/19 Previous Rx's Medication Instructions Recorded Aspirin 81 mg PO DAILY #1 chewable 02/11/19 Atorvastatin [Lipitor] 40 mg PO HS #30 tablet 02/11/19 HYDROcodone/APAP 5-325MG [Cougar 1 tab PO Q6HR PRN 3 Days #12 tab 04/21/21 5-325] Allergies Allergy/AdvReac Type Severity Reaction Status Date / Time gabapentin Allergy Unknown Verified 04/21/21 12:09 pregabalin [From Lyrica] Allergy BLISTERED Verified 04/21/21 12:09 SKIN Sulfa (Sulfonamide Allergy Unknown Verified 04/21/21 12:09 Antibiotics) Review of Systems ROS Statement: Those systems with pertinent positive or pertinent negative responses have been documented in the HPI. ROS Other: All systems not noted in ROS Statement are negative. Past Medical History Past Medical History: CVA/TIA, Diabetes Mellitus, Deep Vein Thrombosis (DVT), Eye Disorder, Fibromyalgia, Hyperlipidemia, Hypertension Additional Past Medical History / Comment(s): Anemia. Headaches, CONSTANT HUMMING in [place] Ears. Blind LT Eye r/t Macular Degeneration, VERY Limited Vision RT Eye. STOOLS DARK. HIATAL HERNIA. FREQ URINATION, OCC UTI. SPURS IN HEAD, NECK. RT KNEE PAINFUL, murmur. Leiden factor 5 blood disorder - pt states she used to be on coumadin for this but hasn't been for 6-7 years. History of Any Multi-Drug Resistant Organisms: None Reported Past Surgical History: Appendectomy, Bladder Surgery, Joint Replacement Additional Past Surgical History / Comment(s): LT TKA. COLONOSCOPY, EGD. VARICOSE VEIN STRIPPING BILAT Past Anesthesia/Blood Transfusion Reactions: No Reported Reaction Additional Past Anesthesia/Blood Transfusion Reaction / Comment(s): no prior complications with prior blood transfusion. Past Psychological History: No Psychological Hx Reported Smoking Status: Never smoker Past Alcohol Use History: None Reported Past Drug Use History: None Reported - Past Family History Daughter(s) Family Medical History: Cancer Additional Family Medical History / Comment(s): esophagus Father Family Medical History: Cancer Additional Family Medical History / Comment(s): colon Sister(s) Family Medical History: Cancer Additional Family Medical History / Comment(s): 2 SISTERS WITH BREAST CANCER Brother(s) Family Medical History: Cancer Additional Family Medical History / Comment(s): colon General Exam Limitations: no limitations Course Vital Signs 04/21/21 04/21/21 12:05 13:10 Temperature 98 F Pulse Rate 80 Pulse Rate [ 70 Sitting] Pulse Rate [ 68 Standing] Pulse Rate [ 72 Supine] Respiratory 18 Rate Blood Pressure 143/69 Blood Pressure 130/65 [Sitting] Blood Pressure 130/59 [Standing] Blood Pressure 125/60 [Supine] O2 Sat by Pulse 99 Oximetry Medical Decision Making - Lab Data Result diagrams: 04/21/21 12:29 04/21/21 12:29 Lab Results 04/21/21 04/21/21 Range/Units 12:29 12:29 WBC 3.0 L (3.8-10.6) k/uL RBC 3.36 L (3.80-5.40) m/uL Hgb 10.5 L (11.4-16.0) gm/dL Hct 30.5 L (34.0-46.0) % MCV 90.9 (80.0-100.0) fL MCH 31.3 (25.0-35.0) pg MCHC 34.5 (31.0-37.0) g/dL RDW 13.1 (11.5-15.5) % Plt Count 113 L (150-450) k/uL MPV 9.0 Neutrophils % 72 % Lymphocytes % 18 % Monocytes % 5 % Eosinophils % 2 % Basophils % 0 % Neutrophils # 2.2 (1.3-7.7) k/uL Lymphocytes # 0.6 L (1.0-4.8) k/uL Monocytes # 0.2 (0-1.0) k/uL Eosinophils # 0.1 (0-0.7) k/uL Basophils # 0.0 (0-0.2) k/uL Sodium 137 (137-145) mmol/L Potassium 4.9 (3.5-5.1) mmol/L Chloride 103 (98-107) mmol/L Carbon Dioxide 25 (22-30) mmol/L Anion Gap 9 mmol/L BUN 32 H (7-17) mg/dL Creatinine 1.30 H (0.52-1.04) mg/dL Est GFR (CKD-EPI)AfAm 45 (>60 ml/min/1.73 sqM) Est GFR (CKD-EPI)NonAf 39 (>60 ml/min/1.73 sqM) Glucose 108 H (74-99) mg/dL Calcium 9.3 (8.4-10.2) mg/dL Magnesium 2.4 H (1.6-2.3) mg/dL Disposition Clinical Impression: Dehydration Disposition: HOME SELF-CARE Condition: Good Instructions (If sedation given, give patient instructions): Dehydration (ED) Prescriptions: HYDROcodone/APAP 5-325MG [Cougar 5-325] 1 tab PO Q6HR PRN 3 Days #12 tab PRN Reason: Severe Pain Is patient prescribed a controlled substance at d/c from ED?: Yes If prescribed controlled substance>3 days was MAPS reviewed?: Prescribed <3 Days Referrals: Mariaelena Esteves MD [Primary Care Provider] - 1-2 days
[2021-04-21 12:35] LABS: Basophils % (A) 0 %; Eosinophils # (A) 0.1 k/uL (0-0.7); Eosinophils % (A) 2 %; HCT 30.5 % (34.0-46.0); HGB 10.5 gm/dL (11.4-16.0); Lymphocytes # (A) 0.6 k/uL (1.0-4.8); Lymphocytes % (A) 18 %; MCH 31.3 pg (25.0-35.0); MCHC 34.5 g/dL (31.0-37.0); MCV 90.9 fL (80.0-100.0); Monocytes # (A) 0.2 k/uL (0-1.0); Monocytes % (A) 5 %; Neutrophils # (A) 2.2 k/uL (1.3-7.7); Neutrophils % (A) 72 %; Platelet Count 113 k/uL (150-450); RBC 3.36 m/uL (3.80-5.40); RDW 13.1 % (11.5-15.5)
[2021-04-21] MEDS ORDERED: MORPHINE SULFATE 2 MG/ML SYRINGE IV STA (12:37)
[2021-04-21 12:45] LABS: Calcium 9.3 mg/dL (8.4-10.2); Magnesium 2.4 mg/dL (1.6-2.3); Potassium 4.9 mmol/L (3.5-5.1)
[2021-04-21 13:25] VITALS: BP 125/60; PULSE 72
[2021-04-21] MEDS ORDERED: ONDANSETRON 4 MG ODT STARTER PACK 2 TAB BTL PO STA (13:38)
== END 2021-04-21 13:45 | disposition home or self-care (01) ==
LOC: EC 12:04
DX: E86.0 Dehydration (principal); D72.819 Decreased white blood cell count, unspecified; E11.9 Type 2 diabetes mellitus without complications; I10 Essential (primary) hypertension; E78.5 Hyperlipidemia, unspecified; M79.7 Fibromyalgia; Z79.84 Long term (current) use of oral hypoglycemic drugs; Z79.82 Long term (current) use of aspirin; Z79.1 Long term (current) use of non-steroidal anti-inflammatories (NSAID); Z88.2 Allergy status to sulfonamides; Z86.718 Personal history of other venous thrombosis and embolism; Z86.73 Personal history of transient ischemic attack (TIA), and cerebral infarction without residual deficits; Z80.3 Family history of malignant neoplasm of breast
CPT/HCPCS: 36415; 93005; 80048; 83735; 85025; 96374; 96375; 96361; 99284; J2765; J2270

== ENCOUNTER 2022-04-06 19:35 | Emergency (ER) | payer MEDICARE ==
--- NOTE | 2022-04-06 20:40 | ED ---
General Adult HPI - General Chief complaint: Psychiatric Symptoms Stated complaint: PSYCH Time Seen by Provider: 04/06/22 20:25 Source: patient, family (daughters and soninlaw), EMS Mode of arrival: EMS Limitations: altered mental status - History of Present Illness Initial comments: 82-year-old female presents to the emergency room with her two daughters and son-in-law. Daughter states that over the past 2 weeks patient has been increasingly confused and agitated. They state she is talking to people that are not there, accusing family members are trying to hurt her. Today she tried to jump out of the car. Daughter states they went to [facility] 2 weeks ago and she was diagnosed with a urinary tract infection and did finish the antibiotics. While at [facility] they stated her psychosis may be related to sundowning. She was discharged and directed to follow up with Dr. Stevenson but they've been unable to get an appointment. Patient's symptoms continue to worsen and family is concerned for her safety. She does not have a history of dementia or psychosis, her symptoms start usually after 4 PM. She does not take any antipsychotics. She has not had any fevers. She does have a cough but family states it is ALLERGIES from nasal drainage. -: week(s) (2) Severity scale (1-10): 4 Quality: aching, constant Consistency: constant Associated Symptoms: cough Treatments Prior to Arrival: none - Related Data Home Medications Medication Instructions Recorded Confirmed Metoprolol Succinate [Toprol XL] 25 mg PO DAILY 07/23/15 04/06/22 Docusate [Colace] 100 mg PO HS 04/06/22 04/06/22 Famotidine [Pepcid] 40 mg PO DAILY 04/06/22 04/06/22 Mirtazapine 7.5 mg PO HS PRN 04/06/22 04/06/22 busPIRone HCl [Buspar] 5 mg PO TID 04/06/22 04/06/22 diphenhydrAMINE HCL [Benadryl] 25 mg PO HS PRN 04/06/22 04/06/22 Previous Rx's Medication Instructions Recorded Atorvastatin [Lipitor] 40 mg PO HS #30 tablet 02/11/19 Allergies Allergy/AdvReac Type Severity Reaction Status Date / Time gabapentin Allergy Unknown Verified 04/06/22 21:40 lorazepam [From Ativan] Allergy Hallucinati Verified 04/06/22 22:57 ons pregabalin [From Lyrica] Allergy BLISTERED Verified 04/06/22 21:40 SKIN Sulfa (Sulfonamide Allergy Unknown Verified 04/06/22 21:40 Antibiotics) Review of Systems ROS Statement: Those systems with pertinent positive or pertinent negative responses have been documented in the HPI. ROS Other: All systems not noted in ROS Statement are negative. Past Medical History Past Medical History: CVA/TIA, Diabetes Mellitus, Deep Vein Thrombosis (DVT), Eye Disorder, Fibromyalgia, Hyperlipidemia, Hypertension Additional Past Medical History / Comment(s): Anemia. Headaches, CONSTANT HUMMING in [place] Ears. Blind LT Eye r/t Macular Degeneration, VERY Limited Vision RT Eye. STOOLS DARK. HIATAL HERNIA. FREQ URINATION, OCC UTI. SPURS IN HEAD, NECK. RT KNEE PAINFUL, murmur. Leiden factor 5 blood disorder - pt states she used to be on coumadin for this but hasn't been for 6-7 years. History of Any Multi-Drug Resistant Organisms: None Reported Past Surgical History: Appendectomy, Bladder Surgery, Joint Replacement Additional Past Surgical History / Comment(s): LT TKA. COLONOSCOPY, EGD. VARICOSE VEIN STRIPPING BILAT Past Anesthesia/Blood Transfusion Reactions: No Reported Reaction Additional Past Anesthesia/Blood Transfusion Reaction / Comment(s): no prior complications with prior blood transfusion. Past Psychological History: No Psychological Hx Reported Smoking Status: Never smoker Past Alcohol Use History: None Reported Past Drug Use History: None Reported - Past Family History Daughter(s) Family Medical History: Cancer Additional Family Medical History / Comment(s): esophagus Father Family Medical History: Cancer Additional Family Medical History / Comment(s): colon Sister(s) Family Medical History: Cancer Additional Family Medical History / Comment(s): 2 SISTERS WITH BREAST CANCER Brother(s) Family Medical History: Cancer Additional Family Medical History / Comment(s): colon General Exam Limitations: altered mental status General appearance: alert Head exam: Present: atraumatic, normocephalic, normal inspection Eye exam: Absent: scleral icterus, conjunctival injection, periorbital swelling Neck exam: Absent: tenderness, meningismus, lymphadenopathy Respiratory exam: Absent: respiratory distress, accessory muscle use, decreased breath sounds Cardiovascular Exam: Present: regular rate GI/Abdominal exam: Present: soft. Absent: distended, tenderness Extremities exam: Present: normal capillary refill. Absent: tenderness, pedal edema Neurological exam: Present: alert (Alert to person and place, thinks the year is 2019), CN II-XII intact, normal gait Psychiatric exam: Present: other (Patient states that she believes that her family is trying to hurt her) Skin exam: Present: warm, dry. Absent: cyanosis, diaphoretic, petechiae, pallor Course Vital Signs 04/06/22 04/06/22 20:05 21:20 Temperature 98.3 F 97.9 F Pulse Rate 84 82 Respiratory 20 18 Rate Blood Pressure 105/61 O2 Sat by Pulse 98 98 Oximetry Medical Decision Making - Medical Decision Making Medical records were obtained from [facility] from her visit on March 22 when she was initially seen for her altered mental status. BUN 31, creatinine 1.3 at that time. Hemoglobin was 9.9 is 10.3 today. [facility] did perform a CT showing no acute intracranial process. 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 Chest x-ray shows no acute cardiopulmonary disease. Daughter at bedside states that urine cultures always come back and she does not believe this is a urinary tract infection. She does believe that this is psychosis and wants the patient admitted to psychiatric facility. Since we are unable to provide that service she wants to take the patient home to follow up with [facility] geriatric psych. She states that she has been in contact with this facility and they are willing to admit her. Case discussed with Dr. Montenegro who was agreeable to discharging the patient home to the family. I directed the family to follow up with the urine culture result and discuss continuation care with their primary care doctor. They are agreeable to this plan of care. Patient's vital signs are stable at discharge. She is ambulatory with a steady gait. - Lab Data Result diagrams: 04/06/22 22:10 04/06/22 22:10 Lab Results 04/06/22 04/06/22 04/06/22 Range/Units 22:10 22:10 22:22 WBC 5.1 (3.8-10.6) k/uL RBC 3.47 L (3.80-5.40) m/uL Hgb 10.5 L (11.4-16.0) gm/dL Hct 31.8 L (34.0-46.0) % MCV 91.6 (80.0-100.0) fL MCH 30.3 (25.0-35.0) pg MCHC 33.0 (31.0-37.0) g/dL RDW 13.9 (11.5-15.5) % Plt Count 160 (150-450) k/uL MPV 8.3 Neutrophils % 69 % Lymphocytes % 19 % Monocytes % 7 % Eosinophils % 2 % Basophils % 1 % Neutrophils # 3.6 (1.3-7.7) k/uL Lymphocytes # 1.0 (1.0-4.8) k/uL Monocytes # 0.4 (0-1.0) k/uL Eosinophils # 0.1 (0-0.7) k/uL Basophils # 0.0 (0-0.2) k/uL Sodium 138 (137-145) mmol/L Potassium 5.2 H (3.5-5.1) mmol/L Chloride 101 (98-107) mmol/L Carbon Dioxide 31 H (22-30) mmol/L Anion Gap 6 mmol/L BUN 28 H (7-17) mg/dL Creatinine 1.40 H (0.52-1.04) mg/dL Est GFR (CKD-EPI)AfAm 41 (>60 ml/min/1.73 sqM) Est GFR (CKD-EPI)NonAf 35 (>60 ml/min/1.73 sqM) Glucose 131 H (74-99) mg/dL Calcium 9.3 (8.4-10.2) mg/dL Urine Color Yellow Urine Appearance Cloudy H (Clear) Urine pH 7.0 (5.0-8.0) Ur Specific [place] 1.013 (1.001-1.035) Urine Protein Trace H (Negative) Urine Glucose (UA) Negative (Negative) Urine Ketones Negative (Negative) Urine Blood Negative (Negative) Urine Nitrite Negative (Negative) Urine Bilirubin Negative (Negative) Urine Urobilinogen <2.0 (<2.0) mg/dL Ur Leukocyte Esterase Large H (Negative) Urine RBC 3 (0-5) /hpf Urine WBC >182 H (0-5) /hpf Urine WBC Clumps Many H (None) /hpf Ur Squamous Epith Cells 9 H (0-4) /hpf Amorphous Sediment Few H (None) /hpf Urine Bacteria Few H (None) /hpf Hyaline Casts 165 H (0-2) /lpf WBC Casts 16 (0) /lpf Urine Mucus Rare H (None) /hpf Urine Opiates Screen Not Detected (NotDetected) Ur Oxycodone Screen Not Detected (NotDetected) Urine Methadone Screen Not Detected (NotDetected) Ur Propoxyphene Screen Not Detected (NotDetected) Ur Barbiturates Screen Not Detected (NotDetected) U Tricyclic Antidepress Not Detected (NotDetected) Ur Phencyclidine Scrn Not Detected (NotDetected) Ur Amphetamines Screen Not Detected (NotDetected) U Methamphetamines Scrn Not Detected (NotDetected) U Benzodiazepines Scrn Not Detected (NotDetected) Urine Cocaine Screen Not Detected (NotDetected) U Marijuana (THC) Screen Not Detected (NotDetected) Serum Alcohol <10 mg/dL Disposition Clinical Impression: UTI (urinary tract infection), Altered mental status Disposition: HOME SELF-CARE Condition: Fair Instructions (If sedation given, give patient instructions): Urinary Tract Infection in Women (ED), Altered Mental Status (ED) Additional Instructions: Please follow-up with the urine culture that was done today. Discuss the results with your primary care doctor. Follow-up with geriatric psychiatric at [facility] and Dr. Stevenson for continued altered mental status. Follow-up with the primary care doctor tomorrow. Return to the emergency room with any new or concerning symptoms. Is patient prescribed a controlled substance at d/c from ED?: No Referrals: Mariaelena Esteves MD [Primary Care Provider] - 1-2 days Time of Disposition: 23:40 Decision Date: 04/06/22 Decision Time: 23:08
--- NOTE | 2022-04-06 21:09 | XR ---
EXAMINATION TYPE: XR chest 2V DATE OF EXAM: 04/06/2022 COMPARISON: 02/08/2019 HISTORY: Cough TECHNIQUE: FINDINGS: There is no heart failure nor confluent pneumonic infiltrate. Heart size is normal. No pleu ral effusion. Thoracic aorta is atheromatous. Bony thorax appears intact. IMPRESSION: No active cardiopulmonary disease. No change.
[2022-04-06 21:21] VITALS: BP 105/61; PULSE 82; RESP 18; TEMP 97.9
[2022-04-06 22:21] LABS: Basophils % (A) 1 %; Eosinophils # (A) 0.1 k/uL (0-0.7); Eosinophils % (A) 2 %; HCT 31.8 % (34.0-46.0); HGB 10.5 gm/dL (11.4-16.0); Lymphocytes % (A) 19 %; MCH 30.3 pg (25.0-35.0); MCV 91.6 fL (80.0-100.0); Mean Platelet Volume 8.3; Monocytes # (A) 0.4 k/uL (0-1.0); Monocytes % (A) 7 %; Neutrophils # (A) 3.6 k/uL (1.3-7.7); Neutrophils % (A) 69 %; Platelet Count 160 k/uL (150-450); RBC 3.47 m/uL (3.80-5.40); RDW 13.9 % (11.5-15.5); WBC 5.1 k/uL (3.8-10.6)
[2022-04-06 22:30] LABS: African American GFR (CKD) 41 (>60 ml/min/1.73 sqM); Alcohol <10 mg/dL; Anion Gap 6 mmol/L; Blood Urea Nitrogen 28 mg/dL (7-17); Calcium 9.3 mg/dL (8.4-10.2); Carbon Dioxide 31 mmol/L (22-30); Chloride 101 mmol/L (98-107); Glucose 131 mg/dL (74-99); Non-African American GFR(CKD) 35 (>60 ml/min/1.73 sqM); Potassium 5.2 mmol/L (3.5-5.1); Sodium 138 mmol/L (137-145)
[2022-04-06 22:52] LABS: Amorphous Sediment,Urine Few /hpf; Appearance,Urine Cloudy (Clear); Bacteria,Urine Few /hpf; Bilirubin,Urine Negative (Negative); Blood,Urine Negative (Negative); Color,Urine Yellow; Glucose,Urine (UA) Negative (Negative); Hyaline Casts,Urine 165 /lpf (0-2); Ketones,Urine Negative (Negative); Leukocyte Esterase,Urine Large (Negative); Mucus,Urine Rare /hpf; Nitrite,Urine Negative (Negative); Protein,Urine Trace (Negative); RBC,Urine 3 /hpf (0-5); Specific Gravity,Urine 1.013 (1.001-1.035); Squamous Epithelial Cell,Urine 9 /hpf (0-4); Urobilinogen,Urine <2.0 mg/dL (<2.0); WBC,Urine >182 /hpf (0-5); White Blood Cell Casts,Urine 16 /lpf (0)
[2022-04-06 22:53] LABS: Amphetamine Screen,Urine Not Detected (NotDetected); Barbiturate Screen,Urine Not Detected (NotDetected); Benzodiazepines Screen,Urine Not Detected (NotDetected); Cocaine Screen,Urine Not Detected (NotDetected); Methadone Screen, Urine Not Detected (NotDetected); Opiate Screen,Urine Not Detected (NotDetected); Oxycodone Screen, Urine Not Detected (NotDetected); Phencyclidine Screen,Urine Not Detected (NotDetected); Tricyclic Antidepressant,Urine Not Detected (NotDetected); Urn Cannabinoid Scrn Not Detected (NotDetected)
[2022-04-06] MEDS ORDERED: HALOPERIDOL LACTATE 5 MG/ML 1 ML VIAL IM STA (22:53)
[2022-04-06] MEDS ORDERED: cefTRIAXone IN SWFI 1,000 MG/10 ML SYRINGE IVP STA (22:58)
[2022-04-06] MEDS ORDERED: PIPERACILLIN-TAZOBACTAM 3.375 GM in SODIUM CHLORIDE 0.9% 100 ML IVPB STA (23:07)
[2022-04-06] MEDS ORDERED: LEVOFLOXACIN 500 MG TAB PO STA (23:37)
== END 2022-04-06 23:56 | disposition home or self-care (01) ==
LOC: EC 19:35
DX: R41.82 Altered mental status, unspecified (principal); N39.0 Urinary tract infection, site not specified; E11.9 Type 2 diabetes mellitus without complications; E78.5 Hyperlipidemia, unspecified; I10 Essential (primary) hypertension; Z88.8 Allergy status to other drugs, medicaments and biological substances; Z88.5 Allergy status to narcotic agent; Z88.2 Allergy status to sulfonamides
CPT/HCPCS: 36415; 80048; 85025; 81001; 80306; 87086; 71046; 99285; 96372; G0480; J1630; 80320